=== PATIENT | male | born 1945 | race Caucasian/White ===

== ENCOUNTER 2018-02-03 09:07 | Inpatient (IN) | payer MEDICARE, OTHER ==
[~2018-02-03] VITALS: Ht 177.8 cm; Wt 128.8 kg
[2018-02-03 09:51] LABS: INTERNATIONAL NORMALIZED RATIO 1.16 (0.93-1.1)
[2018-02-03 09:53] LABS: ALBUMIN 3.3 g/dL (3.4-5.0); ANION GAP 10 mmol/L (5-15); CALCIUM 8.7 mg/dL (8.5-10.1); CHLORIDE 107 mmol/L (98-107); CREATININE 1.49 mg/dL (0.7-1.3)
[2018-02-03 10:12] LABS: MEAN CORPUSCULAR HEMOGLOBIN 35.4 pg (27.5-34.5); MEAN CORPUSCULAR HGB CONC 35.8 g/dL (33.2-36.2); MEAN PLATELET VOLUME 6.9 fL (7.4-10.4); RED BLOOD COUNT 3.03 x10^6/uL (4.38-5.82); RED CELL DISTRIBUTION WIDTH 19.5 % (9.4-14.8)
[2018-02-03 10:13] LABS: PLATELET COUNT 29 x10^3/uL (130-400)
[2018-02-03 10:18] LABS: MD YES
[2018-02-03] MEDS ORDERED: ATOR40TA78 PO (10:19)
[2018-02-03] MEDS ORDERED: FURO-93 PO (10:19)
[2018-02-03] MEDS ORDERED: GLYB2.5T2 PO (10:19)
[2018-02-03] MEDS ORDERED: AMLO5TAB7 PO (10:19)
[2018-02-03] MEDS ORDERED: METF500T17 PO (10:19)
[2018-02-03 10:23] LABS: LYMPH#(MANUAL) 0.14 x10^3/uL (1-3.4); LYMPHS% (MANUAL) 36 % (22-44); MONOS#(MANUAL) 0.02 x10^3/uL (0.3-2.7); MONOS% (MANUAL) 4 % (2-9); NRBC % (MANUAL) 4 % (0-1); SEG#(MANUAL) 0.24 x10^3/uL (1.8-6.8); SEGS% (MANUAL) 60 % (42-75)
[2018-02-03 10:24] LABS: <PLATELET ESTIMATE> DECREASED; <PLT MORPHOLOGY> NORMAL PLT MORPH; ANISOCYTOSIS 1+; POLYCHROMASIA 1+
[2018-02-03] MEDS ORDERED: CEFTRIAXONE 1,000 MG in SODIUM CHLORIDE 0.9% 50 ML IVPB ONE (11:30)
[2018-02-03] MEDS ORDERED: CEFTRIAXONE PMX 1GM/50ML 50 ML ONE (11:35)
[2018-02-03] MEDS ORDERED: ONDANSETRON ODT 4 MG PO PRN (12:00)
[2018-02-03] MEDS ORDERED: ONDANSETRON 2MG/ML, 2ML IVPush PRN (12:00)
[2018-02-03] MEDS ORDERED: DOCUSATE 100 MG CAPSULE PO PRN (12:00)
[2018-02-03] MEDS ORDERED: CEFTRIAXONE 1,000 MG in DEXTROSE 5% 50 ML IV SCH ×2 (12:00→23:00)
[2018-02-03] MEDS ORDERED: FUROSEMIDE 10 MG PO PRN (12:00)
[2018-02-03] MEDS ORDERED: hydrALAzine 20 MG/ML, 1ML IVPush PRN (12:00)
[2018-02-03] MEDS ORDERED: ZOLPIDEM 5MG TABLET PO PRN (12:00)
[2018-02-03] MEDS ORDERED: BISACODYL 10 MG SUPP PR PRN (12:00)
[2018-02-03] MEDS: SODIUM CHLORIDE 0.9% 1,000 ML IV SCH ×2 (12:06→21:53)
[2018-02-03 12:44] LABS: FOLATE LEVEL 13.8 ng/mL (3.1-17.5); FREE T4 (FREE THYROXINE) 1.22 ng/dL (0.76-1.46); THYROID STIMULATING HORMONE 0.573 mIU/L (0.358-3.740)
[2018-02-03 13:36] LABS: HEMOGLOBIN A1C 6.6 % (4.2-6.3)
[2018-02-03 14:00] VITALS: BP 142/70
[2018-02-03] MEDS: HYDROcodone/APAP 5/325 TABLET PO PRN (14:15)
[2018-02-03] MEDS: INSULIN LISPRO 100 UNITS/ML, PEN SQ-INSULIN SCH ×2 (16:00→21:54)
[2018-02-03 18:59] VITALS: BP 122/63
[2018-02-03] MEDS: ACETAMINOPHEN 325 MG TABLET PO PRN (19:31)
[2018-02-03] MEDS: ATORVASTATIN 10 MG TABLET PO SCH (19:53)
[2018-02-03] MEDS ORDERED: VANCOMYCIN PER PHARMACY MC PRN (23:00)
[2018-02-03] MEDS ORDERED: PHARMACY MAY ADJ FOR RENAL FX MC PRN (23:30)
[2018-02-03] MEDS ORDERED: PHARMACOKINETIC MONITORING MC PRN (23:45)
[2018-02-03] MEDS ORDERED: PHARMACOKINETIC CONSULTATION MC ONE (23:45)
[2018-02-04] VITALS (10 sets, daily range): BP systolic 99–137; BP diastolic 58–80
[2018-02-04 01:09] LABS: MICROSCOPIC NOT IND
[2018-02-04 01:11] LABS: CULTURE INDICATED? NO
[2018-02-04] MEDS ORDERED: VANCOMYCIN 2,200 MG in SODIUM CHLORIDE 0.9% 500 ML IV ONE (01:30)
[2018-02-04] MEDS: PIPERACILLIN/TAZO/PMX 3.375GM 50 ML IV SCH ×3 (02:13→17:41)
[2018-02-04 05:31] LABS: ANION GAP 12 mmol/L (5-15); CALCIUM 8.2 mg/dL (8.5-10.1); CHLORIDE 105 mmol/L (98-107)
[2018-02-04 05:32] LABS: CREATININE 1.54 mg/dL (0.7-1.3)
[2018-02-04 05:54] LABS: MEAN CORPUSCULAR HEMOGLOBIN 35.5 pg (27.5-34.5); MEAN CORPUSCULAR HGB CONC 35.9 g/dL (33.2-36.2); MEAN CORPUSCULAR VOLUME 99.1 fL (81-97); RED BLOOD COUNT 2.54 x10^6/uL (4.38-5.82); RED CELL DISTRIBUTION WIDTH 19.7 % (9.4-14.8)
[2018-02-04 06:17] LABS: MEAN PLATELET VOLUME 7.3 fL (7.4-10.4); PLATELET COUNT 18 x10^3/uL (130-400)
[2018-02-04 06:30] LABS: MD YES
[2018-02-04 06:35] LABS: LYMPHS% (MANUAL) 24 % (22-44); MONOS#(MANUAL) 0.02 x10^3/uL (0.3-2.7); MONOS% (MANUAL) 4 % (2-9); SEG#(MANUAL) 0.29 x10^3/uL (1.8-6.8); SEGS% (MANUAL) 72 % (42-75)
[2018-02-04 06:37] LABS: <PLATELET ESTIMATE> DECREASED; <PLT MORPHOLOGY> NORMAL PLT MORPH; ANISOCYTOSIS 1+; POLYCHROMASIA 1+
[2018-02-04 06:58] LABS: ALBUMIN 2.8 g/dL (3.4-5.0); BILIRUBIN, DIRECT 0.4 mg/dL (0.1-0.2)
[2018-02-04 07:00] LABS: BILIRUBIN,INDIRECT 0.6 mg/dL (0.0-2.0); TOTAL PROTEIN 6.6 g/dL (6.4-8.2)
[2018-02-04] MEDS: SODIUM CHLORIDE 0.9% 1,000 ML IV SCH (08:00)
[2018-02-04] MEDS: INSULIN LISPRO 100 UNITS/ML, PEN SQ-INSULIN SCH ×4 (09:19→21:18)
[2018-02-04] MEDS: AMLODIPINE 10 MG TAB PO SCH (09:19)
[2018-02-04] MEDS: PANTOPROZOLE 40MG TABLET PO SCH (09:19)
[2018-02-04 13:25] LABS: ANA SCREEN POSITIVE (Negative); ANTI-NUCLEAR ANTIBODY PATTERN HOMOGENOUS
[2018-02-04] MEDS ORDERED: NALOXONE 1 MG/ML, 2ML ONE (13:30)
[2018-02-04] MEDS ORDERED: FLUMAZENIL 0.1 MG/1 ML, 5ML ONE (13:30)
[2018-02-04] MEDS ORDERED: MIDAZOLAM 1 MG/ML, 5ML ONE (13:30)
[2018-02-04] MEDS ORDERED: FENTANYL PF 100 MCG/2ML ONE (13:30)
[2018-02-04] MEDS ORDERED: LIDOCAINE-MPF 2%, 2ML ONE (14:03)
[2018-02-04] MEDS ORDERED: ACETAMINOPHEN 325 MG TABLET PO ONE (20:00)
[2018-02-04] MEDS ORDERED: DIPHENHYDRAMINE 50 MG/ML, 1ML IVPush ONE (20:00)
[2018-02-04] MEDS: ATORVASTATIN 10 MG TABLET PO SCH (21:18)
[2018-02-05] VITALS (13 sets, daily range): BP systolic 88–148; BP diastolic 52–82
[2018-02-05] MEDS: PIPERACILLIN/TAZO/PMX 3.375GM 50 ML IV SCH ×4 (00:58→20:24)
[2018-02-05] MEDS: VANCOMYCIN 2,000 MG in SODIUM CHLORIDE 0.9% 500 ML IV SCH (03:36)
[2018-02-05] MEDS: SODIUM CHLORIDE 0.9% 1,000 ML IV SCH ×2 (03:37→20:24)
[2018-02-05 06:23] LABS: HCT (SEDRATE) 23.3 % (39.2-51.8)
[2018-02-05 06:36] LABS: ANION GAP 9 mmol/L (5-15); CALCIUM 8.3 mg/dL (8.5-10.1); CHLORIDE 106 mmol/L (98-107); CREATININE 1.41 mg/dL (0.7-1.3)
[2018-02-05 06:57] LABS: MD YES; MEAN CORPUSCULAR HEMOGLOBIN 35.4 pg (27.5-34.5); MEAN CORPUSCULAR HGB CONC 35.8 g/dL (33.2-36.2); MEAN PLATELET VOLUME 7.6 fL (7.4-10.4); RED BLOOD COUNT 2.32 x10^6/uL (4.38-5.82); RED CELL DISTRIBUTION WIDTH 19.3 % (9.4-14.8)
[2018-02-05 07:00] LABS: PLATELET COUNT 26 x10^3/uL (130-400)
[2018-02-05 07:04] LABS: <PLATELET ESTIMATE> DECREASED; <PLT MORPHOLOGY> NORMAL PLT MORPH; ANISOCYTOSIS 1+; LYMPH#(MANUAL) 0.34 x10^3/uL (1-3.4); LYMPHS% (MANUAL) 68 % (22-44); POLYCHROMASIA 1+; SEG#(MANUAL) 0.16 x10^3/uL (1.8-6.8); SEGS% (MANUAL) 32 % (42-75)
[2018-02-05] MEDS: PANTOPROZOLE 40MG TABLET PO SCH (09:26)
[2018-02-05] MEDS: INSULIN LISPRO 100 UNITS/ML, PEN SQ-INSULIN SCH ×4 (09:26→20:24)
[2018-02-05] MEDS: AMLODIPINE 10 MG TAB PO SCH (09:26)
[2018-02-05] MEDS: ACETAMINOPHEN 325 MG TABLET PO PRN ×2 (14:54→21:49)
[2018-02-05] MEDS ORDERED: SODIUM CHLORIDE NASAL SPRAY 45ML BOTTLE NAS PRN (16:00)
[2018-02-05] MEDS: ATORVASTATIN 10 MG TABLET PO SCH (20:24)
[2018-02-06] VITALS (8 sets, daily range): BP systolic 114–139; BP diastolic 65–76
[2018-02-06] MEDS: PIPERACILLIN/TAZO/PMX 3.375GM 50 ML IV SCH ×4 (02:21→20:24)
[2018-02-06] MEDS: VANCOMYCIN 2,000 MG in SODIUM CHLORIDE 0.9% 500 ML IV SCH (02:54)
[2018-02-06 06:11] LABS: ANION GAP 10 mmol/L (5-15); CALCIUM 8.2 mg/dL (8.5-10.1); CHLORIDE 108 mmol/L (98-107); CREATININE 1.15 mg/dL (0.7-1.3)
[2018-02-06 06:22] LABS: MEAN CORPUSCULAR HEMOGLOBIN 34.5 pg (27.5-34.5); MEAN CORPUSCULAR HGB CONC 34.6 g/dL (33.2-36.2); MEAN CORPUSCULAR VOLUME 99.7 fL (81-97); RED BLOOD COUNT 2.15 x10^6/uL (4.38-5.82); RED CELL DISTRIBUTION WIDTH 20.6 % (9.4-14.8)
[2018-02-06 06:55] LABS: MD YES; MEAN PLATELET VOLUME 7.2 fL (7.4-10.4)
[2018-02-06 07:01] LABS: NRBC % (MANUAL) 8 % (0-1); OTHER CELLS # (MANUAL) 0.02 x10^3/uL (0-0); OTHER CELLS % (MANUAL) 4 % (0-0)
[2018-02-06 07:02] LABS: ANISOCYTOSIS 1+; LYMPH#(MANUAL) 0.24 x10^3/uL (1-3.4); LYMPHS% (MANUAL) 60 % (22-44); MONOS#(MANUAL) 0.02 x10^3/uL (0.3-2.7); MONOS% (MANUAL) 4 % (2-9); SEG#(MANUAL) 0.13 x10^3/uL (1.8-6.8); SEGS% (MANUAL) 32 % (42-75)
[2018-02-06 07:04] LABS: <PLATELET ESTIMATE> DECREASED; <PLT MORPHOLOGY> NORMAL PLT MORPH; OVALOCYTES 1+
[2018-02-06 07:07] LABS: PLATELET COUNT 18 x10^3/uL (130-400)
[2018-02-06] MEDS: AMLODIPINE 10 MG TAB PO SCH (08:35)
[2018-02-06] MEDS: PANTOPROZOLE 40MG TABLET PO SCH (08:35)
[2018-02-06] MEDS: INSULIN LISPRO 100 UNITS/ML, PEN SQ-INSULIN SCH ×4 (08:35→20:25)
[2018-02-06] MEDS: CARVEDILOL 3.125 MG TABLET PO SCH (17:04)
[2018-02-06] MEDS: ATORVASTATIN 10 MG TABLET PO SCH (20:25)
[2018-02-07] MEDS: SODIUM CHLORIDE 0.9% 1,000 ML IV SCH ×2 (00:51→00:52)
[2018-02-07 00:55] VITALS: BP 116/73
[2018-02-07] MEDS: PIPERACILLIN/TAZO/PMX 3.375GM 50 ML IV SCH ×4 (02:32→23:06)
[2018-02-07] MEDS: VANCOMYCIN 2,000 MG in SODIUM CHLORIDE 0.9% 500 ML IV SCH (03:19)
[2018-02-07 05:54] VITALS: BP 120/67
[2018-02-07] MEDS: CARVEDILOL 3.125 MG TABLET PO SCH ×2 (05:56→18:42)
[2018-02-07 05:59] LABS: ANION GAP 9 mmol/L (5-15); CALCIUM 8.4 mg/dL (8.5-10.1); CHLORIDE 106 mmol/L (98-107)
[2018-02-07 06:01] LABS: CREATININE 1.04 mg/dL (0.7-1.3)
[2018-02-07 06:06] LABS: MEAN CORPUSCULAR HEMOGLOBIN 35.4 pg (27.5-34.5); MEAN CORPUSCULAR HGB CONC 35.8 g/dL (33.2-36.2); MEAN CORPUSCULAR VOLUME 98.9 fL (81-97); MEAN PLATELET VOLUME 7.1 fL (7.4-10.4); RED BLOOD COUNT 2.01 x10^6/uL (4.38-5.82); RED CELL DISTRIBUTION WIDTH 19.5 % (9.4-14.8)
[2018-02-07 06:08] LABS: PLATELET COUNT 21 x10^3/uL (130-400)
[2018-02-07 06:28] LABS: MD YES
[2018-02-07 08:10] VITALS: BP 110/65
[2018-02-07 08:32] LABS: MONOS#(MANUAL) 0.06 x10^3/uL (0.3-2.7); MONOS% (MANUAL) 14 % (2-9)
[2018-02-07 08:33] LABS: LYMPH#(MANUAL) 0.18 x10^3/uL (1-3.4); LYMPHS% (MANUAL) 46 % (22-44); SEG#(MANUAL) 0.16 x10^3/uL (1.8-6.8); SEGS% (MANUAL) 40 % (42-75)
[2018-02-07 08:34] LABS: <PLATELET ESTIMATE> DECREASED; <PLT MORPHOLOGY> NORMAL PLT MORPH; ANISOCYTOSIS 1+
[2018-02-07] MEDS: AMLODIPINE 10 MG TAB PO SCH (08:36)
[2018-02-07] MEDS: INSULIN LISPRO 100 UNITS/ML, PEN SQ-INSULIN SCH ×4 (08:36→20:20)
[2018-02-07] MEDS: PANTOPROZOLE 40MG TABLET PO SCH (08:36)
[2018-02-07] MEDS: ACETAMINOPHEN 325 MG TABLET PO PRN (11:40)
[2018-02-07 14:10] VITALS: BP 118/70
[2018-02-07] MEDS ORDERED: VANCOMYCIN 2,200 MG in SODIUM CHLORIDE 0.9% 500 ML IV SCH (20:00)
[2018-02-07] MEDS: ATORVASTATIN 10 MG TABLET PO SCH (20:20)
[2018-02-07 20:23] VITALS: BP 117/67
[2018-02-08] VITALS (11 sets, daily range): BP systolic 106–145; BP diastolic 64–76
[2018-02-08] MEDS: HYDROcodone/APAP 5/325 TABLET PO PRN (02:55)
[2018-02-08 05:08] LABS: MEAN CORPUSCULAR HEMOGLOBIN 35.1 pg (27.5-34.5); MEAN CORPUSCULAR HGB CONC 35.9 g/dL (33.2-36.2); MEAN CORPUSCULAR VOLUME 97.8 fL (81-97); MEAN PLATELET VOLUME 7.1 fL (7.4-10.4); RED BLOOD COUNT 1.86 x10^6/uL (4.38-5.82); RED CELL DISTRIBUTION WIDTH 19.8 % (9.4-14.8)
[2018-02-08 05:12] LABS: PLATELET COUNT 16 x10^3/uL (130-400)
[2018-02-08] MEDS: CARVEDILOL 3.125 MG TABLET PO SCH ×2 (05:12→17:03)
[2018-02-08] MEDS: PIPERACILLIN/TAZO/PMX 3.375GM 50 ML IV SCH ×3 (05:12→21:56)
[2018-02-08 05:13] LABS: ANION GAP 8 mmol/L (5-15); CALCIUM 8.1 mg/dL (8.5-10.1); CHLORIDE 106 mmol/L (98-107); CREATININE 1.03 mg/dL (0.7-1.3)
[2018-02-08 05:48] LABS: MD YES
[2018-02-08 05:54] LABS: LYMPH#(MANUAL) 0.21 x10^3/uL (1-3.4); LYMPHS% (MANUAL) 52 % (22-44); MONOS#(MANUAL) 0.06 x10^3/uL (0.3-2.7); MONOS% (MANUAL) 16 % (2-9); SEG#(MANUAL) 0.13 x10^3/uL (1.8-6.8); SEGS% (MANUAL) 32 % (42-75)
[2018-02-08 05:55] LABS: ANISOCYTOSIS 1+
[2018-02-08 05:56] LABS: <PLATELET ESTIMATE> DECREASED; <PLT MORPHOLOGY> NORMAL PLT MORPH
[2018-02-08] MEDS: PANTOPROZOLE 40MG TABLET PO SCH (07:30)
[2018-02-08] MEDS: INSULIN LISPRO 100 UNITS/ML, PEN SQ-INSULIN SCH ×4 (08:29→21:18)
[2018-02-08] MEDS: AMLODIPINE 10 MG TAB PO SCH (08:29)
[2018-02-08] MEDS ORDERED: VANCOMYCIN 2,200 MG in SODIUM CHLORIDE 0.9% 500 ML IV SCH (15:30)
[2018-02-08] MEDS: ATORVASTATIN 10 MG TABLET PO SCH (21:18)
[2018-02-09] VITALS (7 sets, daily range): BP systolic 123–160; BP diastolic 62–76
[2018-02-09] MEDS: PIPERACILLIN/TAZO/PMX 3.375GM 50 ML IV SCH (04:07)
[2018-02-09] MEDS: CARVEDILOL 3.125 MG TABLET PO SCH ×2 (05:26→16:32)
[2018-02-09] MEDS: INSULIN LISPRO 100 UNITS/ML, PEN SQ-INSULIN SCH ×4 (07:00→20:17)
[2018-02-09] MEDS: PANTOPROZOLE 40MG TABLET PO SCH (07:30)
[2018-02-09 07:35] LABS: ALBUMIN 2.6 g/dL (3.4-5.0); ANION GAP 9 mmol/L (5-15); CALCIUM 8.3 mg/dL (8.5-10.1); CHLORIDE 107 mmol/L (98-107)
[2018-02-09 07:38] LABS: ALANINE AMINOTRANSFERASE 60 U/L (12-78); ALKALINE PHOSPHATASE 74 U/L (45-117); BILIRUBIN,TOTAL 1.1 mg/dL (0.2-1.0); CREATININE 1.06 mg/dL (0.7-1.3); TOTAL PROTEIN 6.3 g/dL (6.4-8.2)
[2018-02-09 07:45] LABS: MEAN CORPUSCULAR HEMOGLOBIN 33.9 pg (27.5-34.5); MEAN CORPUSCULAR HGB CONC 35.2 g/dL (33.2-36.2); MEAN CORPUSCULAR VOLUME 96.1 fL (81-97); RED BLOOD COUNT 2.43 x10^6/uL (4.38-5.82); RED CELL DISTRIBUTION WIDTH 18.9 % (9.4-14.8)
[2018-02-09 08:04] LABS: HEMOGRAM NOTE RECHECKED; MD YES; MEAN PLATELET VOLUME 7.6 fL (7.4-10.4); PLATELET COUNT 10 x10^3/uL (130-400)
[2018-02-09 08:05] LABS: LYMPH#(MANUAL) 0.19 x10^3/uL (1-3.4); LYMPHS% (MANUAL) 48 % (22-44); MONOS#(MANUAL) 0.06 x10^3/uL (0.3-2.7); MONOS% (MANUAL) 16 % (2-9); SEG#(MANUAL) 0.14 x10^3/uL (1.8-6.8); SEGS% (MANUAL) 36 % (42-75)
[2018-02-09 08:06] LABS: <PLATELET ESTIMATE> DECREASED; <PLT MORPHOLOGY> QNS FOR PLT MORPH; ANISOCYTOSIS 1+
[2018-02-09] MEDS: AMLODIPINE 10 MG TAB PO SCH (08:23)
[2018-02-09] MEDS ORDERED: ONDANSETRON IV ONE (16:00)
[2018-02-09] MEDS ORDERED: DEXTROSE 5% IV ONE (16:00)
[2018-02-09] MEDS ORDERED: DEXAMETHASONE IV ONE (16:00)
[2018-02-09] MEDS ORDERED: AZACITIDINE IV SCH (16:30)
[2018-02-09] MEDS ORDERED: FAMOTIDINE 20 MG/2 ML IVPush SCH (16:30)
[2018-02-09] MEDS ORDERED: SODIUM CHLORIDE 0.9% IV SCH (16:30)
[2018-02-09] MEDS ORDERED: DIPHENHYDRAMINE 50 MG/ML, 1ML IVPush SCH (16:30)
[2018-02-09] MEDS ORDERED: ACETAMINOPHEN 325 MG TABLET PO ONE (16:30)
[2018-02-09] MEDS: FAMOTIDINE 20 MG/2 ML IVPush SCH (16:44)
[2018-02-09] MEDS: DIPHENHYDRAMINE 50 MG/ML, 1ML IVPush SCH (16:44)
[2018-02-09] MEDS: SODIUM CHLORIDE 0.9% IV SCH (18:19)
[2018-02-09] MEDS: AZACITIDINE IV SCH (18:19)
[2018-02-09] MEDS: ATORVASTATIN 10 MG TABLET PO SCH (20:17)
[2018-02-10 02:36] VITALS: BP 134/71
[2018-02-10 04:42] LABS: MEAN CORPUSCULAR HEMOGLOBIN 34.3 pg (27.5-34.5); MEAN CORPUSCULAR HGB CONC 35.3 g/dL (33.2-36.2); MEAN CORPUSCULAR VOLUME 97.1 fL (81-97); MEAN PLATELET VOLUME 7.8 fL (7.4-10.4); RED BLOOD COUNT 2.37 x10^6/uL (4.38-5.82); RED CELL DISTRIBUTION WIDTH 18.4 % (9.4-14.8)
[2018-02-10 04:46] LABS: ALBUMIN 2.7 g/dL (3.4-5.0); ANION GAP 7 mmol/L (5-15); CALCIUM 8.3 mg/dL (8.5-10.1); CHLORIDE 107 mmol/L (98-107)
[2018-02-10 04:50] LABS: ALANINE AMINOTRANSFERASE 62 U/L (12-78); ALKALINE PHOSPHATASE 81 U/L (45-117); BILIRUBIN,TOTAL 0.6 mg/dL (0.2-1.0); CREATININE 1.02 mg/dL (0.7-1.3); TOTAL PROTEIN 6.4 g/dL (6.4-8.2)
[2018-02-10 04:52] LABS: PLATELET COUNT 30 x10^3/uL (130-400)
[2018-02-10 05:44] LABS: MD YES
[2018-02-10 06:01] LABS: LYMPH#(MANUAL) 0.13 x10^3/uL (1-3.4); LYMPHS% (MANUAL) 64 % (22-44); MONOS#(MANUAL) 0.05 x10^3/uL (0.3-2.7); MONOS% (MANUAL) 24 % (2-9); SEG#(MANUAL) 0.02 x10^3/uL (1.8-6.8); SEGS% (MANUAL) 12 % (42-75)
[2018-02-10 06:02] LABS: <PLATELET ESTIMATE> DECREASED; <PLT MORPHOLOGY> NORMAL PLT MORPH; ANISOCYTOSIS 1+
[2018-02-10] MEDS: CARVEDILOL 3.125 MG TABLET PO SCH ×2 (06:18→18:30)
[2018-02-10 07:09] VITALS: BP 129/71
[2018-02-10] MEDS: AMLODIPINE 10 MG TAB PO SCH (08:19)
[2018-02-10] MEDS: PANTOPROZOLE 40MG TABLET PO SCH (08:19)
[2018-02-10] MEDS: INSULIN LISPRO 100 UNITS/ML, PEN SQ-INSULIN SCH ×4 (08:39→20:59)
[2018-02-10 12:15] VITALS: BP 116/71
[2018-02-10] MEDS: ACETAMINOPHEN 325 MG TABLET PO PRN (17:21)
[2018-02-10] MEDS: FAMOTIDINE 20 MG/2 ML IVPush SCH (17:21)
[2018-02-10] MEDS: ONDANSETRON 2MG/ML, 2ML IVPush SCH (17:21)
[2018-02-10] MEDS: DIPHENHYDRAMINE 50 MG/ML, 1ML IVPush SCH (17:36)
[2018-02-10] MEDS: AZACITIDINE IV SCH (18:28)
[2018-02-10] MEDS: SODIUM CHLORIDE 0.9% IV SCH (18:28)
[2018-02-10 19:55] VITALS: BP 122/78
[2018-02-10] MEDS: ATORVASTATIN 10 MG TABLET PO SCH (20:59)
[2018-02-11] VITALS (8 sets, daily range): BP systolic 105–131; BP diastolic 60–75
[2018-02-11] MEDS: CARVEDILOL 3.125 MG TABLET PO SCH ×2 (05:21→18:16)
[2018-02-11 05:24] LABS: ALANINE AMINOTRANSFERASE 53 U/L (12-78); ALBUMIN 2.6 g/dL (3.4-5.0); ANION GAP 9 mmol/L (5-15); CALCIUM 8.2 mg/dL (8.5-10.1); CHLORIDE 106 mmol/L (98-107); CREATININE 1.18 mg/dL (0.7-1.3)
[2018-02-11 05:33] LABS: ALKALINE PHOSPHATASE 73 U/L (45-117); BILIRUBIN,TOTAL 0.7 mg/dL (0.2-1.0); TOTAL PROTEIN 6.1 g/dL (6.4-8.2)
[2018-02-11 05:40] LABS: MEAN CORPUSCULAR HEMOGLOBIN 33.7 pg (27.5-34.5); MEAN CORPUSCULAR VOLUME 96.3 fL (81-97); MEAN PLATELET VOLUME 7.5 fL (7.4-10.4); RED CELL DISTRIBUTION WIDTH 17.7 % (9.4-14.8)
[2018-02-11 05:42] LABS: PLATELET COUNT 21 x10^3/uL (130-400)
[2018-02-11 06:06] LABS: MD YES
[2018-02-11 06:11] LABS: LYMPH#(MANUAL) 0.25 x10^3/uL (1-3.4); LYMPHS% (MANUAL) 84 % (22-44); MONOS#(MANUAL) 0.01 x10^3/uL (0.3-2.7); MONOS% (MANUAL) 4 % (2-9); SEG#(MANUAL) 0.04 x10^3/uL (1.8-6.8); SEGS% (MANUAL) 12 % (42-75)
[2018-02-11 06:12] LABS: <PLATELET ESTIMATE> DECREASED; <PLT MORPHOLOGY> NORMAL PLT MORPH; ANISOCYTOSIS 1+
[2018-02-11] MEDS: POLYETHYLENE GLYCOL 17 GM PACKET PO SCH (08:05)
[2018-02-11] MEDS: PANTOPROZOLE 40MG TABLET PO SCH (08:06)
[2018-02-11] MEDS: INSULIN LISPRO 100 UNITS/ML, PEN SQ-INSULIN SCH ×4 (08:06→21:17)
[2018-02-11] MEDS: AMLODIPINE 10 MG TAB PO SCH (08:06)
[2018-02-11] MEDS: ACETAMINOPHEN 325 MG TABLET PO PRN ×2 (12:07→16:46)
[2018-02-11] MEDS ORDERED: PHARMACOKINETIC CONSULTATION MC ONE (13:00)
[2018-02-11] MEDS ORDERED: PHARMACOKINETIC MONITORING MC PRN (13:00)
[2018-02-11] MEDS ORDERED: VANCOMYCIN PER PHARMACY MC PRN (13:00)
[2018-02-11] MEDS: VANCOMYCIN 2,200 MG in SODIUM CHLORIDE 0.9% 500 ML IV SCH (13:57)
[2018-02-11] MEDS: CEFEPIME 2 GM in DEXTROSE 5% 100 ML IV SCH (16:30)
[2018-02-11] MEDS: ONDANSETRON 2MG/ML, 2ML IVPush SCH (16:30)
[2018-02-11] MEDS ORDERED: SODIUM CHLORIDE 0.9%, 500ML IVBOLUS ONE (16:45)
[2018-02-11 16:59] LABS: MICROSCOPIC NOT IND
[2018-02-11] MEDS: DIPHENHYDRAMINE 50 MG/ML, 1ML IVPush SCH (17:00)
[2018-02-11] MEDS: FAMOTIDINE 20 MG/2 ML IVPush SCH (17:00)
[2018-02-11 17:03] LABS: CULTURE INDICATED? NO
[2018-02-11] MEDS: HYDROcodone/APAP 5/325 TABLET PO PRN ×2 (17:20→21:02)
[2018-02-11] MEDS: SODIUM CHLORIDE 0.9% IV SCH (17:30)
[2018-02-11] MEDS: AZACITIDINE IV SCH (17:30)
[2018-02-11 17:31] LABS: ALANINE AMINOTRANSFERASE 54 U/L (12-78); ALBUMIN 2.7 g/dL (3.4-5.0); ANION GAP 7 mmol/L (5-15); CALCIUM 8.1 mg/dL (8.5-10.1); CHLORIDE 103 mmol/L (98-107); CREATINE KINASE, TOTAL 72 U/L (39-308); TROPONIN I 0.041 ng/mL (0.000-0.045)
[2018-02-11 17:34] LABS: ALKALINE PHOSPHATASE 75 U/L (45-117); TOTAL PROTEIN 6.4 g/dL (6.4-8.2)
[2018-02-11 17:45] LABS: MEAN CORPUSCULAR HEMOGLOBIN 34.5 pg (27.5-34.5); MEAN CORPUSCULAR HGB CONC 35.6 g/dL (33.2-36.2); MEAN CORPUSCULAR VOLUME 97.1 fL (81-97); MEAN PLATELET VOLUME 8.3 fL (7.4-10.4); RED BLOOD COUNT 2.17 x10^6/uL (4.38-5.82); RED CELL DISTRIBUTION WIDTH 17.5 % (9.4-14.8)
[2018-02-11 17:48] LABS: PLATELET COUNT 13 x10^3/uL (130-400)
[2018-02-11 17:49] LABS: MD YES
[2018-02-11 18:07] LABS: ANISOCYTOSIS 1+; EOS#(MANUAL) 0.02 x10^3/uL (0.0-0.4); EOS% (MANUAL) 4 % (1-7); LYMPH#(MANUAL) 0.24 x10^3/uL (1-3.4); LYMPHS% (MANUAL) 60 % (22-44); MONOS#(MANUAL) 0.13 x10^3/uL (0.3-2.7); MONOS% (MANUAL) 32 % (2-9); NRBC % (MANUAL) 1 % (0-1); SEG#(MANUAL) 0.02 x10^3/uL (1.8-6.8); SEGS% (MANUAL) 4 % (42-75)
[2018-02-11 18:08] LABS: OVALOCYTES 1+
[2018-02-11 18:09] LABS: <PLATELET ESTIMATE> DECREASED; <PLT MORPHOLOGY> NORMAL PLT MORPH; POLYCHROMASIA 1+
[2018-02-11] MEDS ORDERED: SODIUM CHLORIDE 0.9% 500 ML IV SCH (19:00)
[2018-02-11] MEDS: ATORVASTATIN 10 MG TABLET PO SCH (21:00)
[2018-02-11] MEDS: SODIUM CHLORIDE 0.9% 1,000 ML IV SCH (21:18)
[2018-02-12] MEDS: CEFEPIME 2 GM in DEXTROSE 5% 100 ML IV SCH ×3 (01:13→20:25)
[2018-02-12] MEDS: SODIUM CHLORIDE 0.9% 1,000 ML IV SCH ×3 (05:17→20:25)
[2018-02-12] MEDS: CARVEDILOL 3.125 MG TABLET PO SCH ×2 (06:00→17:06)
[2018-02-12] MEDS: POLYETHYLENE GLYCOL 17 GM PACKET PO SCH (09:00)
[2018-02-12] MEDS: AMLODIPINE 10 MG TAB PO SCH (09:00)
[2018-02-12] MEDS: INSULIN LISPRO 100 UNITS/ML, PEN SQ-INSULIN SCH ×4 (10:03→20:30)
[2018-02-12] MEDS: MICAFUNGIN 100 MG in SODIUM CHLORIDE 0.9% 100 ML IV SCH (10:59)
[2018-02-12 11:45] VITALS: BP 104/66
[2018-02-12] MEDS: VANCOMYCIN 2,200 MG in SODIUM CHLORIDE 0.9% 500 ML IV SCH (16:05)
[2018-02-12] MEDS: ONDANSETRON 2MG/ML, 2ML IVPush SCH (16:30)
[2018-02-12] MEDS: SODIUM CHLORIDE 0.9% IV SCH (16:55)
[2018-02-12] MEDS: AZACITIDINE IV SCH (16:55)
[2018-02-12] MEDS: DIPHENHYDRAMINE 50 MG/ML, 1ML IVPush SCH (16:56)
[2018-02-12] MEDS: FAMOTIDINE 20 MG/2 ML IVPush SCH (16:56)
[2018-02-12 19:31] VITALS: BP 117/70
[2018-02-12] MEDS: ATORVASTATIN 10 MG TABLET PO SCH (20:26)
[2018-02-13] VITALS (7 sets, daily range): BP systolic 103–118; BP diastolic 67–74
[2018-02-13] MEDS: SODIUM CHLORIDE 0.9% 1,000 ML IV SCH ×3 (03:20→21:00)
[2018-02-13] MEDS: CEFEPIME 2 GM in DEXTROSE 5% 100 ML IV SCH ×3 (03:21→21:20)
[2018-02-13] MEDS: CARVEDILOL 3.125 MG TABLET PO SCH ×2 (05:31→18:44)
[2018-02-13 06:35] LABS: MEAN CORPUSCULAR HEMOGLOBIN 33.8 pg (27.5-34.5); MEAN CORPUSCULAR VOLUME 96.6 fL (81-97); MEAN PLATELET VOLUME 8.3 fL (7.4-10.4); RED BLOOD COUNT 2.07 x10^6/uL (4.38-5.82); RED CELL DISTRIBUTION WIDTH 18.1 % (9.4-14.8)
[2018-02-13 06:39] LABS: PLATELET COUNT 6 x10^3/uL (130-400)
[2018-02-13 07:00] LABS: MD YES
[2018-02-13 07:03] LABS: ANISOCYTOSIS 1+; EOS#(MANUAL) 0.02 x10^3/uL (0.0-0.4); EOS% (MANUAL) 4 % (1-7); LYMPH#(MANUAL) 0.42 x10^3/uL (1-3.4); LYMPHS% (MANUAL) 70 % (22-44); MONOS#(MANUAL) 0.16 x10^3/uL (0.3-2.7); MONOS% (MANUAL) 26 % (2-9); SEGS% (MANUAL) 0 % (42-75)
[2018-02-13 07:04] LABS: <PLATELET ESTIMATE> DECREASED; <PLT MORPHOLOGY> QNS FOR PLT MORPH
[2018-02-13] MEDS: INSULIN LISPRO 100 UNITS/ML, PEN SQ-INSULIN SCH ×4 (08:12→21:28)
[2018-02-13] MEDS: AMLODIPINE 10 MG TAB PO SCH (10:22)
[2018-02-13] MEDS: POLYETHYLENE GLYCOL 17 GM PACKET PO SCH (10:22)
[2018-02-13] MEDS: MICAFUNGIN 100 MG in SODIUM CHLORIDE 0.9% 100 ML IV SCH (10:46)
[2018-02-13] MEDS: ONDANSETRON 2MG/ML, 2ML IVPush SCH (16:34)
[2018-02-13] MEDS: FAMOTIDINE 20 MG/2 ML IVPush SCH (17:00)
[2018-02-13] MEDS: DIPHENHYDRAMINE 50 MG/ML, 1ML IVPush SCH (17:01)
[2018-02-13] MEDS: AZACITIDINE IV SCH (17:01)
[2018-02-13] MEDS: SODIUM CHLORIDE 0.9% IV SCH (17:01)
[2018-02-13] MEDS: ACETAMINOPHEN 325 MG TABLET PO PRN (19:01)
[2018-02-13] MEDS: ATORVASTATIN 10 MG TABLET PO SCH (21:17)
[2018-02-14] VITALS (13 sets, daily range): BP systolic 108–147; BP diastolic 67–80
[2018-02-14] MEDS: CEFEPIME 2 GM in DEXTROSE 5% 100 ML IV SCH ×3 (04:08→21:37)
[2018-02-14] MEDS: SODIUM CHLORIDE 0.9% 1,000 ML IV SCH ×2 (05:00→13:00)
[2018-02-14] MEDS: CARVEDILOL 3.125 MG TABLET PO SCH ×2 (05:43→17:50)
[2018-02-14] MEDS: INSULIN LISPRO 100 UNITS/ML, PEN SQ-INSULIN SCH ×4 (08:17→21:51)
[2018-02-14] MEDS: POLYETHYLENE GLYCOL 17 GM PACKET PO SCH (09:00)
[2018-02-14] MEDS: AMLODIPINE 10 MG TAB PO SCH (09:00)
[2018-02-14 11:40] LABS: MEAN CORPUSCULAR HEMOGLOBIN 34.2 pg (27.5-34.5); MEAN CORPUSCULAR HGB CONC 35.7 g/dL (33.2-36.2); MEAN CORPUSCULAR VOLUME 95.8 fL (81-97); MEAN PLATELET VOLUME 7.2 fL (7.4-10.4); RED BLOOD COUNT 1.76 x10^6/uL (4.38-5.82); RED CELL DISTRIBUTION WIDTH 17.4 % (9.4-14.8)
[2018-02-14 11:41] LABS: MD YES
[2018-02-14 11:51] LABS: PLATELET COUNT 6 x10^3/uL (130-400)
[2018-02-14 11:57] LABS: ANION GAP 6 mmol/L (5-15); CALCIUM 7.7 mg/dL (8.5-10.1); CHLORIDE 101 mmol/L (98-107); CREATININE 1.08 mg/dL (0.7-1.3)
[2018-02-14] MEDS: maalox/diphenh/lido/sucralfate 5 ML PO PRN ×2 (12:30→17:50)
[2018-02-14] MEDS: HYDROcodone/APAP 5/325 TABLET PO PRN (13:28)
[2018-02-14] MEDS ORDERED: FUROSEMIDE 40 MG/4 ML ONE (16:21)
[2018-02-14] MEDS ORDERED: FUROSEMIDE 40 MG/4 ML IV ONE (16:30)
[2018-02-14 17:14] LABS: BAND#(MANUAL) 0.01 x10^3/uL; BANDS%(MANUAL) 1 % (0-7); BASOS#(MANUAL) 0.01 x10^3/uL (0-0.1); BASOS% (MANUAL) 1 % (0-1); EOS#(MANUAL) 0.01 x10^3/uL (0.0-0.4); EOS% (MANUAL) 1 % (1-7); LYMPHS% (MANUAL) 19 % (22-44); MONOS#(MANUAL) 0.07 x10^3/uL (0.3-2.7); MONOS% (MANUAL) 14 % (2-9); SEG#(MANUAL) 0.01 x10^3/uL (1.8-6.8); SEGS% (MANUAL) 2 % (42-75)
[2018-02-14 17:18] LABS: ANISOCYTOSIS 1+
[2018-02-14 17:20] LABS: POLYCHROMASIA 1+
[2018-02-14 17:21] LABS: <PLATELET ESTIMATE> DECREASED; OVALOCYTES 1+
[2018-02-14 17:22] LABS: <PLT MORPHOLOGY> QNS FOR PLT MORPH
[2018-02-14 17:23] LABS: OTHER CELLS # (MANUAL) 0.31 x10^3/uL (0-0); OTHER CELLS % (MANUAL) 62 % (0-0)
[2018-02-14] MEDS ORDERED: FAMOTIDINE 20 MG TABLET ONE (19:46)
[2018-02-14] MEDS ORDERED: DIPHENHYDRAMINE 25 MG CAPSULE ONE (19:46)
[2018-02-14] MEDS ORDERED: ONDANSETRON ODT 8 MG ONE (19:47)
[2018-02-14] MEDS: FAMOTIDINE 20 MG/2 ML IVPush SCH (20:08)
[2018-02-14] MEDS: ONDANSETRON 2MG/ML, 2ML IVPush SCH (20:09)
[2018-02-14] MEDS: DIPHENHYDRAMINE 50 MG/ML, 1ML IVPush SCH (20:09)
[2018-02-14] MEDS: SODIUM CHLORIDE 0.9% IV SCH (20:39)
[2018-02-14] MEDS: AZACITIDINE IV SCH (20:39)
[2018-02-14] MEDS ORDERED: INSULIN LISPRO 100 UNITS/ML, PEN SQ-INSULIN SCH (21:00)
[2018-02-14] MEDS: ATORVASTATIN 10 MG TABLET PO SCH (21:37)
[2018-02-15] VITALS (13 sets, daily range): BP systolic 103–123; BP diastolic 28–83
[2018-02-15] MEDS: CEFEPIME 2 GM in DEXTROSE 5% 100 ML IV SCH ×3 (04:04→22:37)
[2018-02-15] MEDS: CARVEDILOL 3.125 MG TABLET PO SCH ×2 (06:07→18:10)
[2018-02-15 06:11] LABS: MEAN CORPUSCULAR HEMOGLOBIN 33.4 pg (27.5-34.5); MEAN CORPUSCULAR HGB CONC 35.4 g/dL (33.2-36.2); MEAN CORPUSCULAR VOLUME 94.3 fL (81-97); MEAN PLATELET VOLUME 9.4 fL (7.4-10.4); RED BLOOD COUNT 1.86 x10^6/uL (4.38-5.82); RED CELL DISTRIBUTION WIDTH 17.3 % (9.4-14.8)
[2018-02-15 06:12] LABS: PLATELET COUNT 5 x10^3/uL (130-400)
[2018-02-15 06:15] LABS: MD YES
[2018-02-15 07:31] LABS: LYMPH#(MANUAL) 0.14 x10^3/uL (1-3.4); LYMPHS% (MANUAL) 28 % (22-44); MONOS#(MANUAL) 0.09 x10^3/uL (0.3-2.7); MONOS% (MANUAL) 17 % (2-9); SEG#(MANUAL) 0.01 x10^3/uL (1.8-6.8); SEGS% (MANUAL) 1 % (42-75)
[2018-02-15 07:33] LABS: PROGRANULOCYTES# (MANUAL) 0.27 x10^3/uL (0-0)
[2018-02-15 07:34] LABS: <PLATELET ESTIMATE> DECREASED; <PLT MORPHOLOGY> QNS FOR PLT MORPH; ANISOCYTOSIS 1+; OVALOCYTES 1+
[2018-02-15 07:36] LABS: OTHER CELLS # (MANUAL) 0.27 x10^3/uL (0-0); OTHER CELLS % (MANUAL) 54 % (0-0)
[2018-02-15] MEDS ORDERED: FUROSEMIDE 40 MG/4 ML IV ONE (08:00)
[2018-02-15] MEDS: ACETAMINOPHEN 325 MG TABLET PO PRN (08:47)
[2018-02-15] MEDS: AMLODIPINE 10 MG TAB PO SCH (08:48)
[2018-02-15] MEDS: INSULIN LISPRO 100 UNITS/ML, PEN SQ-INSULIN SCH ×4 (08:48→22:14)
[2018-02-15] MEDS: POLYETHYLENE GLYCOL 17 GM PACKET PO SCH (08:49)
[2018-02-15 10:14] LABS: ALBUMIN 2.3 g/dL (3.4-5.0); ANION GAP 8 mmol/L (5-15); CALCIUM 8.1 mg/dL (8.5-10.1); CHLORIDE 100 mmol/L (98-107); CREATININE 1.11 mg/dL (0.7-1.3)
[2018-02-15] MEDS: DIPHENHYDRAMINE 50 MG/ML, 1ML IVPush SCH (17:04)
[2018-02-15] MEDS: FAMOTIDINE 20 MG/2 ML IVPush SCH (17:04)
[2018-02-15] MEDS: ONDANSETRON 2MG/ML, 2ML IVPush SCH (17:04)
[2018-02-15] MEDS: SODIUM CHLORIDE 0.9% IV SCH (17:33)
[2018-02-15] MEDS: AZACITIDINE IV SCH (17:33)
[2018-02-15] MEDS: HYDROcodone/APAP 5/325 TABLET PO PRN ×2 (19:16→22:02)
[2018-02-15] MEDS ORDERED: DIPHENHYDRAMINE 50 MG/ML, 1ML IVPush SCH (20:00)
[2018-02-15] MEDS ORDERED: FAMOTIDINE 20 MG/2 ML IVPush SCH (20:00)
[2018-02-15] MEDS ORDERED: ONDANSETRON 2MG/ML, 2ML IVPush SCH (20:00)
[2018-02-15] MEDS ORDERED: AZACITIDINE IV SCH (20:30)
[2018-02-15] MEDS ORDERED: SODIUM CHLORIDE 0.9% IV SCH (20:30)
[2018-02-15] MEDS: ATORVASTATIN 10 MG TABLET PO SCH (22:02)
[2018-02-15] MEDS: maalox/diphenh/lido/sucralfate 5 ML PO PRN (22:35)
[2018-02-16 03:50] VITALS: BP 105/69
[2018-02-16 06:05] LABS: MEAN CORPUSCULAR HEMOGLOBIN 33.7 pg (27.5-34.5); MEAN CORPUSCULAR HGB CONC 35.9 g/dL (33.2-36.2); MEAN CORPUSCULAR VOLUME 93.6 fL (81-97); MEAN PLATELET VOLUME 7.7 fL (7.4-10.4); RED BLOOD COUNT 2.15 x10^6/uL (4.38-5.82); RED CELL DISTRIBUTION WIDTH 17.1 % (9.4-14.8)
[2018-02-16 06:08] LABS: PLATELET COUNT 10 x10^3/uL (130-400)
[2018-02-16 06:12] LABS: ALBUMIN 2.2 g/dL (3.4-5.0); ANION GAP 9 mmol/L (5-15); CALCIUM 6.4 mg/dL (8.5-10.1); CHLORIDE 100 mmol/L (98-107); CREATININE 1.12 mg/dL (0.7-1.3)
[2018-02-16] MEDS: CARVEDILOL 3.125 MG TABLET PO SCH ×2 (06:31→17:50)
[2018-02-16] MEDS: CEFEPIME 2 GM in DEXTROSE 5% 100 ML IV SCH ×3 (06:32→23:02)
[2018-02-16 06:46] VITALS: BP 115/60
[2018-02-16 06:57] LABS: MD YES
[2018-02-16 06:58] LABS: SEG#(MANUAL) 0.07 x10^3/uL (1.8-6.8); SEGS% (MANUAL) 10 % (42-75)
[2018-02-16 06:59] LABS: <PLATELET ESTIMATE> DECREASED; ANISOCYTOSIS 1+; LYMPH#(MANUAL) 0.15 x10^3/uL (1-3.4); LYMPHS% (MANUAL) 22 % (22-44); MONOS#(MANUAL) 0.04 x10^3/uL (0.3-2.7); MONOS% (MANUAL) 5 % (2-9); OTHER CELLS # (MANUAL) 0.44 x10^3/uL (0-0)
[2018-02-16 07:00] LABS: <PLT MORPHOLOGY> QNS FOR PLT MORPH
[2018-02-16 07:01] LABS: OTHER CELLS % (MANUAL) 63 % (0-0); OVALOCYTES 1+
[2018-02-16] MEDS: INSULIN LISPRO 100 UNITS/ML, PEN SQ-INSULIN SCH ×4 (07:43→19:54)
[2018-02-16] MEDS: AMLODIPINE 10 MG TAB PO SCH (10:05)
[2018-02-16] MEDS: POLYETHYLENE GLYCOL 17 GM PACKET PO SCH (10:18)
[2018-02-16 12:13] VITALS: BP 125/60
[2018-02-16] MEDS: ONDANSETRON 2MG/ML, 2ML IVPush SCH (16:56)
[2018-02-16] MEDS: DIPHENHYDRAMINE 50 MG/ML, 1ML IVPush SCH (16:56)
[2018-02-16] MEDS: FAMOTIDINE 20 MG/2 ML IVPush SCH (16:56)
[2018-02-16] MEDS: SODIUM CHLORIDE 0.9% IV SCH (17:45)
[2018-02-16] MEDS: AZACITIDINE IV SCH (17:45)
[2018-02-16 19:42] VITALS: BP 101/61
[2018-02-16] MEDS: ATORVASTATIN 10 MG TABLET PO SCH (19:52)
[2018-02-16] MEDS: HYDROcodone/APAP 5/325 TABLET PO PRN (19:59)
[2018-02-16 23:29] VITALS: BP 102/64
[2018-02-17] VITALS (8 sets, daily range): BP systolic 104–121; BP diastolic 65–78
[2018-02-17 05:15] LABS: MEAN CORPUSCULAR HEMOGLOBIN 33.5 pg (27.5-34.5); MEAN CORPUSCULAR HGB CONC 35.7 g/dL (33.2-36.2); MEAN CORPUSCULAR VOLUME 93.8 fL (81-97); MEAN PLATELET VOLUME 8.5 fL (7.4-10.4); RED BLOOD COUNT 2.16 x10^6/uL (4.38-5.82); RED CELL DISTRIBUTION WIDTH 16.3 % (9.4-14.8)
[2018-02-17 05:16] LABS: PLATELET COUNT 7 x10^3/uL (130-400)
[2018-02-17 05:20] LABS: ALBUMIN 2.2 g/dL (3.4-5.0); ANION GAP 7 mmol/L (5-15); CALCIUM 7.8 mg/dL (8.5-10.1); CHLORIDE 98 mmol/L (98-107); CREATININE 1.08 mg/dL (0.7-1.3)
[2018-02-17] MEDS: CARVEDILOL 3.125 MG TABLET PO SCH (05:47)
[2018-02-17 05:51] LABS: MD YES
[2018-02-17 06:01] LABS: LYMPH#(MANUAL) 0.26 x10^3/uL (1-3.4); LYMPHS% (MANUAL) 37 % (22-44); MONOS#(MANUAL) 0.01 x10^3/uL (0.3-2.7); MONOS% (MANUAL) 1 % (2-9); SEG#(MANUAL) 0.05 x10^3/uL (1.8-6.8); SEGS% (MANUAL) 7 % (42-75)
[2018-02-17 06:02] LABS: OTHER CELLS # (MANUAL) 0.39 x10^3/uL (0-0)
[2018-02-17 06:06] LABS: ANISOCYTOSIS 1+; OTHER CELLS % (MANUAL) 55 % (0-0)
[2018-02-17 06:07] LABS: <PLATELET ESTIMATE> DECREASED; <PLT MORPHOLOGY> QNS FOR PLT MORPH
[2018-02-17 06:08] LABS: OVALOCYTES 1+; POLYCHROMASIA 1+
[2018-02-17] MEDS: CEFEPIME 2 GM in DEXTROSE 5% 100 ML IV SCH ×3 (07:35→23:28)
[2018-02-17] MEDS: AMLODIPINE 10 MG TAB PO SCH (08:27)
[2018-02-17] MEDS: INSULIN LISPRO 100 UNITS/ML, PEN SQ-INSULIN SCH ×4 (08:27→21:04)
[2018-02-17] MEDS: POLYETHYLENE GLYCOL 17 GM PACKET PO SCH (08:27)
[2018-02-17] MEDS ORDERED: DIPHENHYDRAMINE 50 MG/ML, 1ML IVPush ONE (11:30)
[2018-02-17] MEDS: ACETAMINOPHEN 325 MG TABLET PO PRN (14:37)
[2018-02-17] MEDS: CARVEDILOL 6.25 MG TABLET PO SCH (17:13)
[2018-02-17] MEDS: ATORVASTATIN 10 MG TABLET PO SCH (21:03)
[2018-02-18] VITALS (15 sets, daily range): BP systolic 101–121; BP diastolic 59–74
[2018-02-18 05:47] LABS: ALBUMIN 2.3 g/dL (3.4-5.0); ANION GAP 7 mmol/L (5-15); CALCIUM 8.2 mg/dL (8.5-10.1); CHLORIDE 99 mmol/L (98-107)
[2018-02-18] MEDS: CARVEDILOL 6.25 MG TABLET PO SCH ×2 (06:07→17:19)
[2018-02-18 06:20] LABS: MEAN CORPUSCULAR HEMOGLOBIN 32.8 pg (27.5-34.5); MEAN CORPUSCULAR VOLUME 93.6 fL (81-97); MEAN PLATELET VOLUME 8.8 fL (7.4-10.4); RED BLOOD COUNT 1.98 x10^6/uL (4.38-5.82); RED CELL DISTRIBUTION WIDTH 16.6 % (9.4-14.8)
[2018-02-18 06:25] LABS: PLATELET COUNT 6 x10^3/uL (130-400)
[2018-02-18 06:29] LABS: MD YES
[2018-02-18 06:35] LABS: EOS#(MANUAL) 0.01 x10^3/uL (0.0-0.4); EOS% (MANUAL) 2 % (1-7); MONOS#(MANUAL) 0.01 x10^3/uL (0.3-2.7); MONOS% (MANUAL) 2 % (2-9)
[2018-02-18 06:36] LABS: OTHER CELLS # (MANUAL) 0.32 x10^3/uL (0-0); OTHER CELLS % (MANUAL) 54 % (0-0)
[2018-02-18 06:37] LABS: LYMPH#(MANUAL) 0.24 x10^3/uL (1-3.4); LYMPHS% (MANUAL) 40 % (22-44); SEG#(MANUAL) 0.01 x10^3/uL (1.8-6.8); SEGS% (MANUAL) 2 % (42-75)
[2018-02-18 06:38] LABS: <PLATELET ESTIMATE> DECREASED; <PLT MORPHOLOGY> QNS FOR PLT MORPH; ANISOCYTOSIS 1+; OVALOCYTES 1+
[2018-02-18] MEDS: INSULIN LISPRO 100 UNITS/ML, PEN SQ-INSULIN SCH ×4 (08:09→20:44)
[2018-02-18] MEDS: POLYETHYLENE GLYCOL 17 GM PACKET PO SCH (08:10)
[2018-02-18] MEDS: CEFEPIME 2 GM in DEXTROSE 5% 100 ML IV SCH ×3 (12:48→23:14)
[2018-02-18] MEDS: ATORVASTATIN 10 MG TABLET PO SCH (20:43)
[2018-02-19 02:00] VITALS: BP 112/67
[2018-02-19 04:52] VITALS: BP 118/69
[2018-02-19] MEDS: CARVEDILOL 6.25 MG TABLET PO SCH ×2 (05:02→17:51)
[2018-02-19 05:27] LABS: MEAN CORPUSCULAR HEMOGLOBIN 33.9 pg (27.5-34.5); MEAN CORPUSCULAR HGB CONC 36.2 g/dL (33.2-36.2); MEAN CORPUSCULAR VOLUME 93.5 fL (81-97); RED BLOOD COUNT 2.09 x10^6/uL (4.38-5.82); RED CELL DISTRIBUTION WIDTH 15.6 % (9.4-14.8)
[2018-02-19 05:33] LABS: ALBUMIN 2.4 g/dL (3.4-5.0); ANION GAP 5 mmol/L (5-15); CALCIUM 8.3 mg/dL (8.5-10.1); CHLORIDE 97 mmol/L (98-107); CREATININE 1.06 mg/dL (0.7-1.3)
[2018-02-19 05:58] LABS: MD YES
[2018-02-19 06:00] LABS: MEAN PLATELET VOLUME 8.7 fL (7.4-10.4)
[2018-02-19 06:01] LABS: PLATELET COUNT 11 x10^3/uL (130-400)
[2018-02-19 06:42] LABS: LYMPH#(MANUAL) 0.46 x10^3/uL (1-3.4); LYMPHS% (MANUAL) 65 % (22-44); SEG#(MANUAL) 0.01 x10^3/uL (1.8-6.8); SEGS% (MANUAL) 2 % (42-75)
[2018-02-19 06:44] LABS: ANISOCYTOSIS 1+; OTHER CELLS # (MANUAL) 0.23 x10^3/uL (0-0); OTHER CELLS % (MANUAL) 33 % (0-0)
[2018-02-19 06:46] LABS: <PLATELET ESTIMATE> DECREASED; <PLT MORPHOLOGY> QNS FOR PLT MORPH; OVALOCYTES 1+
[2018-02-19 07:28] VITALS: BP 122/69
[2018-02-19] MEDS: INSULIN LISPRO 100 UNITS/ML, PEN SQ-INSULIN SCH ×4 (07:39→20:30)
[2018-02-19] MEDS: CEFEPIME 2 GM in DEXTROSE 5% 100 ML IV SCH ×3 (07:40→23:25)
[2018-02-19] MEDS: POLYETHYLENE GLYCOL 17 GM PACKET PO SCH (09:31)
[2018-02-19] MEDS: HYDROcodone/APAP 5/325 TABLET PO PRN (12:09)
[2018-02-19 13:01] VITALS: BP 110/73
[2018-02-19 17:50] VITALS: BP 139/72
[2018-02-19 19:08] VITALS: BP 122/67
[2018-02-19] MEDS: ATORVASTATIN 10 MG TABLET PO SCH (20:29)
[2018-02-20] VITALS (12 sets, daily range): BP systolic 96–135; BP diastolic 57–86
[2018-02-20] MEDS: HYDROcodone/APAP 5/325 TABLET PO PRN ×3 (03:42→23:52)
[2018-02-20] MEDS: CARVEDILOL 6.25 MG TABLET PO SCH ×2 (05:16→17:58)
[2018-02-20 05:53] LABS: ALBUMIN 2.4 g/dL (3.4-5.0); ANION GAP 7 mmol/L (5-15); CHLORIDE 96 mmol/L (98-107); CREATININE 1.07 mg/dL (0.7-1.3)
[2018-02-20 06:25] LABS: MEAN CORPUSCULAR HEMOGLOBIN 33.4 pg (27.5-34.5); MEAN CORPUSCULAR HGB CONC 35.9 g/dL (33.2-36.2); RED BLOOD COUNT 1.99 x10^6/uL (4.38-5.82); RED CELL DISTRIBUTION WIDTH 15.9 % (9.4-14.8)
[2018-02-20 06:55] LABS: MEAN PLATELET VOLUME 9.1 fL (7.4-10.4)
[2018-02-20 06:59] LABS: MD YES
[2018-02-20 07:00] LABS: PLATELET COUNT 8 x10^3/uL (130-400)
[2018-02-20 07:19] LABS: BASOS#(MANUAL) 0.03 x10^3/uL (0-0.1); BASOS% (MANUAL) 4 % (0-1); LYMPH#(MANUAL) 0.28 x10^3/uL (1-3.4); LYMPHS% (MANUAL) 40 % (22-44); MONOS#(MANUAL) 0.11 x10^3/uL (0.3-2.7); MONOS% (MANUAL) 16 % (2-9); SEG#(MANUAL) 0.03 x10^3/uL (1.8-6.8); SEGS% (MANUAL) 4 % (42-75)
[2018-02-20 07:21] LABS: OTHER CELLS # (MANUAL) 0.25 x10^3/uL (0-0); OTHER CELLS % (MANUAL) 36 % (0-0)
[2018-02-20 07:22] LABS: <PLATELET ESTIMATE> DECREASED; <PLT MORPHOLOGY> QNS FOR PLT MORPH; ANISOCYTOSIS 1+; OVALOCYTES 1+
[2018-02-20] MEDS: CEFEPIME 2 GM in DEXTROSE 5% 100 ML IV SCH ×3 (07:36→23:52)
[2018-02-20] MEDS: INSULIN LISPRO 100 UNITS/ML, PEN SQ-INSULIN SCH ×4 (08:13→21:30)
[2018-02-20] MEDS: POLYETHYLENE GLYCOL 17 GM PACKET PO SCH (09:48)
[2018-02-20] MEDS ORDERED: SODIUM CHLORIDE 0.9%, 250ML IVBOLUS ONE (17:00)
[2018-02-20] MEDS: ATORVASTATIN 10 MG TABLET PO SCH (21:30)
[2018-02-21] VITALS (9 sets, daily range): BP systolic 98–134; BP diastolic 60–93
[2018-02-21] MEDS: CARVEDILOL 6.25 MG TABLET PO SCH (05:02)
[2018-02-21 05:49] LABS: CHLORIDE 98 mmol/L (98-107)
[2018-02-21 05:56] LABS: ALBUMIN 2.4 g/dL (3.4-5.0); ANION GAP 8 mmol/L (5-15); CALCIUM 8.1 mg/dL (8.5-10.1); CREATININE 0.99 mg/dL (0.7-1.3)
[2018-02-21 06:17] LABS: MEAN CORPUSCULAR HEMOGLOBIN 32.6 pg (27.5-34.5); MEAN CORPUSCULAR HGB CONC 35.4 g/dL (33.2-36.2); MEAN PLATELET VOLUME 8.6 fL (7.4-10.4); RED BLOOD COUNT 2.19 x10^6/uL (4.38-5.82); RED CELL DISTRIBUTION WIDTH 15.4 % (9.4-14.8)
[2018-02-21 06:20] LABS: PLATELET COUNT 5 x10^3/uL (130-400)
[2018-02-21 06:22] LABS: MD YES
[2018-02-21 06:36] LABS: LYMPH#(MANUAL) 0.24 x10^3/uL (1-3.4); LYMPHS% (MANUAL) 40 % (22-44); METAMYELOCYTES# (MANUAL) 0.02 x10^3/uL (0-0)
[2018-02-21 06:38] LABS: METAMYELOCYTES% (MANUAL) 3 % (0-1)
[2018-02-21 06:55] LABS: BAND#(MANUAL) 0.01 x10^3/uL; BANDS%(MANUAL) 1 % (0-7); SEG#(MANUAL) 0.02 x10^3/uL (1.8-6.8); SEGS% (MANUAL) 4 % (42-75)
[2018-02-21 06:56] LABS: OTHER CELLS # (MANUAL) 0.31 x10^3/uL (0-0); OTHER CELLS % (MANUAL) 52 % (0-0)
[2018-02-21 07:00] LABS: ANISOCYTOSIS 1+
[2018-02-21 07:01] LABS: <PLATELET ESTIMATE> DECREASED; <PLT MORPHOLOGY> NORMAL PLT MORPH; OVALOCYTES 1+
[2018-02-21] MEDS: CEFEPIME 2 GM in DEXTROSE 5% 100 ML IV SCH ×2 (08:28→21:19)
[2018-02-21] MEDS: INSULIN LISPRO 100 UNITS/ML, PEN SQ-INSULIN SCH ×4 (08:29→21:19)
[2018-02-21] MEDS: POLYETHYLENE GLYCOL 17 GM PACKET PO SCH (08:34)
[2018-02-21] MEDS: HYDROcodone/APAP 5/325 TABLET PO PRN ×2 (13:18→18:04)
[2018-02-21] MEDS ORDERED: AMIODARONE 150 MG in DEXTROSE 5% 100 ML IV ONE (15:30)
[2018-02-21] MEDS ORDERED: DIGOXIN 0.25 MG/ML, 2ML IVPush ONE (15:30)
[2018-02-21] MEDS ORDERED: AMIODARONE 900 MG in DEXTROSE 5% 482 ML IV PRN (15:30)
[2018-02-21] MEDS ORDERED: FILTER 0.22 MICRON IV ONE (15:30)
[2018-02-21] MEDS: METOPROLOL TARTRATE 25 MG TABLET PO SCH ×2 (17:47→22:52)
[2018-02-21] MEDS: ATORVASTATIN 10 MG TABLET PO SCH (21:20)
[2018-02-22] VITALS (11 sets, daily range): BP systolic 100–129; BP diastolic 62–77
[2018-02-22] MEDS: METOPROLOL TARTRATE 25 MG TABLET PO SCH ×2 (04:40→08:52)
[2018-02-22] MEDS: HYDROcodone/APAP 5/325 TABLET PO PRN ×2 (04:42→13:27)
[2018-02-22] MEDS: CEFEPIME 2 GM in DEXTROSE 5% 100 ML IV SCH ×3 (04:43→23:10)
[2018-02-22] MEDS: INSULIN LISPRO 100 UNITS/ML, PEN SQ-INSULIN SCH ×4 (07:50→20:58)
[2018-02-22 07:51] LABS: ALBUMIN 2.4 g/dL (3.4-5.0); ANION GAP 7 mmol/L (5-15); CALCIUM 8.2 mg/dL (8.5-10.1); CHLORIDE 98 mmol/L (98-107); CREATININE 0.93 mg/dL (0.7-1.3)
[2018-02-22 08:11] LABS: MEAN CORPUSCULAR HEMOGLOBIN 32.4 pg (27.5-34.5); MEAN CORPUSCULAR HGB CONC 35.3 g/dL (33.2-36.2); MEAN CORPUSCULAR VOLUME 91.8 fL (81-97); MEAN PLATELET VOLUME 7.9 fL (7.4-10.4); RED BLOOD COUNT 1.98 x10^6/uL (4.38-5.82); RED CELL DISTRIBUTION WIDTH 15.4 % (9.4-14.8)
[2018-02-22 08:12] LABS: PLATELET COUNT 10 x10^3/uL (130-400)
[2018-02-22 08:32] LABS: MD YES
[2018-02-22 08:40] LABS: BAND#(MANUAL) 0.01 x10^3/uL; BANDS%(MANUAL) 2 % (0-7); LYMPH#(MANUAL) 0.18 x10^3/uL (1-3.4); LYMPHS% (MANUAL) 30 % (22-44); METAMYELOCYTES# (MANUAL) 0.01 x10^3/uL (0-0); METAMYELOCYTES% (MANUAL) 2 % (0-1); MYELOCYTES# (MANUAL) 0.04 x10^3/uL (0-0); MYELOCYTES% (MANUAL) 6 % (0-0); SEG#(MANUAL) 0.04 x10^3/uL (1.8-6.8); SEGS% (MANUAL) 6 % (42-75)
[2018-02-22 08:44] LABS: NRBC % (MANUAL) 2 % (0-1); OTHER CELLS # (MANUAL) 0.32 x10^3/uL (0-0); OTHER CELLS % (MANUAL) 54 % (0-0)
[2018-02-22 08:45] LABS: ANISOCYTOSIS 1+
[2018-02-22 08:46] LABS: <PLATELET ESTIMATE> DECREASED; <PLT MORPHOLOGY> NORMAL PLT MORPH
[2018-02-22] MEDS: SPIRONOLACTONE 25 MG TABLET PO SCH (08:52)
[2018-02-22] MEDS: POLYETHYLENE GLYCOL 17 GM PACKET PO SCH (08:53)
[2018-02-22] MEDS: LISINOPRIL 5 MG TABLET PO SCH (10:10)
[2018-02-22] MEDS: AMIODARONE 200 MG TABLET PO SCH ×3 (11:20→20:57)
[2018-02-22] MEDS: CARVEDILOL 3.125 MG TABLET PO SCH (18:05)
[2018-02-22] MEDS: ATORVASTATIN 10 MG TABLET PO SCH (20:57)
[2018-02-22] MEDS ORDERED: INSULIN GLARGINE 100 UNITS/ML, PEN SQ-INSULIN SCH (21:00)
[2018-02-23] VITALS (12 sets, daily range): BP systolic 90–122; BP diastolic 44–75
[2018-02-23] MEDS ORDERED: AMIODARONE 150 MG in DEXTROSE 5% 100 ML IV ONE (01:00)
[2018-02-23] MEDS ORDERED: AMIODARONE 900 MG in DEXTROSE 5% 482 ML IV PRN (01:00)
[2018-02-23] MEDS ORDERED: FILTER 0.22 MICRON IV PRN (01:00)
[2018-02-23] MEDS: HYDROcodone/APAP 5/325 TABLET PO PRN ×4 (02:46→22:11)
[2018-02-23] MEDS: CARVEDILOL 3.125 MG TABLET PO SCH ×2 (05:52→17:42)
[2018-02-23 06:00] LABS: MEAN CORPUSCULAR HEMOGLOBIN 31.5 pg (27.5-34.5); MEAN CORPUSCULAR HGB CONC 34.5 g/dL (33.2-36.2); MEAN CORPUSCULAR VOLUME 91.4 fL (81-97); MEAN PLATELET VOLUME 7.5 fL (7.4-10.4); RED BLOOD COUNT 2.24 x10^6/uL (4.38-5.82); RED CELL DISTRIBUTION WIDTH 14.9 % (9.4-14.8)
[2018-02-23 06:08] LABS: ALBUMIN 2.5 g/dL (3.4-5.0); ANION GAP 4 mmol/L (5-15); CALCIUM 8.1 mg/dL (8.5-10.1); CHLORIDE 95 mmol/L (98-107)
[2018-02-23 06:10] LABS: PLATELET COUNT 8 x10^3/uL (130-400)
[2018-02-23 06:11] LABS: CREATININE 1.02 mg/dL (0.7-1.3)
[2018-02-23 06:36] LABS: MD YES
[2018-02-23 06:46] LABS: LYMPH#(MANUAL) 0.28 x10^3/uL (1-3.4); LYMPHS% (MANUAL) 46 % (22-44); MONOS#(MANUAL) 0.01 x10^3/uL (0.3-2.7); MONOS% (MANUAL) 1 % (2-9); SEG#(MANUAL) 0.01 x10^3/uL (1.8-6.8); SEGS% (MANUAL) 2 % (42-75)
[2018-02-23 06:48] LABS: <PLATELET ESTIMATE> DECREASED; <PLT MORPHOLOGY> NORMAL PLT MORPH; ANISOCYTOSIS 1+; NRBC % (MANUAL) 1 % (0-1); OTHER CELLS # (MANUAL) 0.31 x10^3/uL (0-0); OTHER CELLS % (MANUAL) 51 % (0-0)
[2018-02-23] MEDS: CEFEPIME 2 GM in DEXTROSE 5% 100 ML IV SCH ×3 (07:41→23:29)
[2018-02-23] MEDS: INSULIN LISPRO 100 UNITS/ML, PEN SQ-INSULIN SCH ×4 (07:42→21:21)
[2018-02-23] MEDS: SPIRONOLACTONE 25 MG TABLET PO SCH (08:03)
[2018-02-23] MEDS: POLYETHYLENE GLYCOL 17 GM PACKET PO SCH (08:03)
[2018-02-23] MEDS: LISINOPRIL 5 MG TABLET PO SCH (08:04)
[2018-02-23 18:52] LABS: MEAN CORPUSCULAR HEMOGLOBIN 33.3 pg (27.5-34.5); MEAN CORPUSCULAR HGB CONC 36.5 g/dL (33.2-36.2); MEAN CORPUSCULAR VOLUME 91.4 fL (81-97); MEAN PLATELET VOLUME 7.7 fL (7.4-10.4); RED BLOOD COUNT 2.02 x10^6/uL (4.38-5.82); RED CELL DISTRIBUTION WIDTH 14.6 % (9.4-14.8)
[2018-02-23 18:56] LABS: PLATELET COUNT 11 x10^3/uL (130-400)
[2018-02-23 19:00] LABS: MD YES
[2018-02-23 19:11] LABS: POTASSIUM,URINE RANDOM 21 mmol/L; SODIUM,URINE RANDOM 18 mmol/L
[2018-02-23 19:13] LABS: CHLORIDE,URINE RANDOM < 10 mmol/L
[2018-02-23 19:13] LABS: EOS#(MANUAL) 0.02 x10^3/uL (0.0-0.4); EOS% (MANUAL) 2 % (1-7); LYMPH#(MANUAL) 0.36 x10^3/uL (1-3.4); LYMPHS% (MANUAL) 40 % (22-44); MONOS#(MANUAL) 0.04 x10^3/uL (0.3-2.7); MONOS% (MANUAL) 4 % (2-9); MYELOCYTES# (MANUAL) 0.13 x10^3/uL (0-0); MYELOCYTES% (MANUAL) 14 % (0-0); SEG#(MANUAL) 0.04 x10^3/uL (1.8-6.8); SEGS% (MANUAL) 4 % (42-75)
[2018-02-23 19:15] LABS: OTHER CELLS # (MANUAL) 0.32 x10^3/uL (0-0); OTHER CELLS % (MANUAL) 36 % (0-0)
[2018-02-23 19:17] LABS: POLYCHROMASIA 1+; ROULEAUX 2+
[2018-02-23 19:18] LABS: <PLATELET ESTIMATE> DECREASED; <PLT MORPHOLOGY> NORMAL PLT MORPH
[2018-02-23 19:20] LABS: OSMOLALITY,URINE 343 mOsm/kg (500-850)
[2018-02-23 19:28] LABS: INTERNATIONAL NORMALIZED RATIO 1.44 (0.93-1.1); PROTHROMBIN TIME 14.7 Seconds (9.6-11.5)
[2018-02-23] MEDS: ATORVASTATIN 10 MG TABLET PO SCH (21:20)
[2018-02-23] MEDS: INSULIN GLARGINE 100 UNITS/ML, PEN SQ-INSULIN SCH (21:21)
[2018-02-24] VITALS (13 sets, daily range): BP systolic 101–137; BP diastolic 11–73
[2018-02-24] MEDS: HYDROcodone/APAP 5/325 TABLET PO PRN (05:36)
[2018-02-24] MEDS: CARVEDILOL 3.125 MG TABLET PO SCH ×2 (05:36→17:45)
[2018-02-24 06:20] LABS: MEAN CORPUSCULAR HEMOGLOBIN 32.3 pg (27.5-34.5); MEAN CORPUSCULAR HGB CONC 35.3 g/dL (33.2-36.2); MEAN CORPUSCULAR VOLUME 91.4 fL (81-97); MEAN PLATELET VOLUME 7.5 fL (7.4-10.4); RED BLOOD COUNT 2.43 x10^6/uL (4.38-5.82); RED CELL DISTRIBUTION WIDTH 14.5 % (9.4-14.8)
[2018-02-24 06:24] LABS: CALCIUM 8.2 mg/dL (8.5-10.1); CHLORIDE 97 mmol/L (98-107)
[2018-02-24 06:27] LABS: ALBUMIN 2.4 g/dL (3.4-5.0); ANION GAP 10 mmol/L (5-15); CREATININE 0.98 mg/dL (0.7-1.3)
[2018-02-24 06:34] LABS: PLATELET COUNT 8 x10^3/uL (130-400)
[2018-02-24 07:03] LABS: MD YES
[2018-02-24 07:10] LABS: LYMPH#(MANUAL) 0.21 x10^3/uL (1-3.4); LYMPHS% (MANUAL) 30 % (22-44); METAMYELOCYTES# (MANUAL) 0.04 x10^3/uL (0-0); METAMYELOCYTES% (MANUAL) 6 % (0-1); MONOS#(MANUAL) 0.01 x10^3/uL (0.3-2.7); MONOS% (MANUAL) 2 % (2-9); MYELOCYTES# (MANUAL) 0.04 x10^3/uL (0-0); MYELOCYTES% (MANUAL) 6 % (0-0); SEG#(MANUAL) 0.06 x10^3/uL (1.8-6.8); SEGS% (MANUAL) 8 % (42-75)
[2018-02-24 07:11] LABS: PROGRANULOCYTES# (MANUAL) 0.01 x10^3/uL (0-0); PROGRANULOCYTES% (MANUAL) 2 % (0-0)
[2018-02-24 07:16] LABS: OTHER CELLS # (MANUAL) 0.32 x10^3/uL (0-0); OTHER CELLS % (MANUAL) 46 % (0-0)
[2018-02-24 07:17] LABS: <PLATELET ESTIMATE> DECREASED; <PLT MORPHOLOGY> NORMAL PLT MORPH; ANISOCYTOSIS 1+
[2018-02-24] MEDS: CEFEPIME 2 GM in DEXTROSE 5% 100 ML IV SCH ×3 (07:39→23:19)
[2018-02-24] MEDS: INSULIN LISPRO 100 UNITS/ML, PEN SQ-INSULIN SCH ×4 (09:37→20:36)
[2018-02-24] MEDS: LISINOPRIL 5 MG TABLET PO SCH (09:38)
[2018-02-24] MEDS: MORPHINE SULFATE 4 MG/ML, 1ML IVPush PRN ×2 (09:38→17:45)
[2018-02-24] MEDS: SPIRONOLACTONE 25 MG TABLET PO SCH (09:38)
[2018-02-24] MEDS: POLYETHYLENE GLYCOL 17 GM PACKET PO SCH (09:38)
[2018-02-24] MEDS: AMIODARONE 200 MG TABLET PO SCH ×2 (09:49→20:34)
[2018-02-24] MEDS: ATORVASTATIN 10 MG TABLET PO SCH (20:34)
[2018-02-24] MEDS: INSULIN GLARGINE 100 UNITS/ML, PEN SQ-INSULIN SCH (20:35)
[2018-02-25] VITALS (8 sets, daily range): BP systolic 108–133; BP diastolic 55–70
[2018-02-25] MEDS: CARVEDILOL 3.125 MG TABLET PO SCH ×2 (06:15→18:00)
[2018-02-25] MEDS: CEFEPIME 2 GM in DEXTROSE 5% 100 ML IV SCH ×2 (06:32→15:52)
[2018-02-25 06:39] LABS: MEAN CORPUSCULAR HEMOGLOBIN 32.1 pg (27.5-34.5); MEAN CORPUSCULAR HGB CONC 35.3 g/dL (33.2-36.2); MEAN CORPUSCULAR VOLUME 90.8 fL (81-97); MEAN PLATELET VOLUME 8.7 fL (7.4-10.4); RED BLOOD COUNT 2.36 x10^6/uL (4.38-5.82); RED CELL DISTRIBUTION WIDTH 14.5 % (9.4-14.8)
[2018-02-25] MEDS: maalox/diphenh/lido/sucralfate 5 ML PO PRN (06:39)
[2018-02-25 06:41] LABS: PLATELET COUNT 6 x10^3/uL (130-400)
[2018-02-25 06:44] LABS: ALANINE AMINOTRANSFERASE 25 U/L (12-78); ALBUMIN 2.3 g/dL (3.4-5.0); ANION GAP 7 mmol/L (5-15); CALCIUM 8.2 mg/dL (8.5-10.1); CHLORIDE 101 mmol/L (98-107)
[2018-02-25 06:47] LABS: ALKALINE PHOSPHATASE 91 U/L (45-117); BILIRUBIN,TOTAL 1.2 mg/dL (0.2-1.0); TOTAL PROTEIN 6.4 g/dL (6.4-8.2)
[2018-02-25] MEDS ORDERED: ACETAMINOPHEN 325 MG TABLET PO ONE (07:00)
[2018-02-25] MEDS ORDERED: DIPHENHYDRAMINE 50 MG/ML, 1ML IVPush ONE (07:00)
[2018-02-25 07:07] LABS: MD YES
[2018-02-25 07:56] LABS: EOS#(MANUAL) 0.01 x10^3/uL (0.0-0.4); EOS% (MANUAL) 1 % (1-7); LYMPH#(MANUAL) 0.28 x10^3/uL (1-3.4); LYMPHS% (MANUAL) 40 % (22-44); MONOS#(MANUAL) 0.06 x10^3/uL (0.3-2.7); MONOS% (MANUAL) 8 % (2-9); MYELOCYTES# (MANUAL) 0.01 x10^3/uL (0-0); MYELOCYTES% (MANUAL) 2 % (0-0); SEG#(MANUAL) 0.01 x10^3/uL (1.8-6.8); SEGS% (MANUAL) 2 % (42-75)
[2018-02-25 07:57] LABS: <PLATELET ESTIMATE> DECREASED; <PLT MORPHOLOGY> NORMAL PLT MORPH; ANISOCYTOSIS 1+; OTHER CELLS # (MANUAL) 0.33 x10^3/uL (0-0); OTHER CELLS % (MANUAL) 47 % (0-0)
[2018-02-25] MEDS: SPIRONOLACTONE 25 MG TABLET PO SCH (08:15)
[2018-02-25] MEDS: AMIODARONE 200 MG TABLET PO SCH ×3 (08:16→21:10)
[2018-02-25] MEDS: LISINOPRIL 5 MG TABLET PO SCH (08:16)
[2018-02-25] MEDS: POLYETHYLENE GLYCOL 17 GM PACKET PO SCH (08:16)
[2018-02-25] MEDS: INSULIN LISPRO 100 UNITS/ML, PEN SQ-INSULIN SCH ×4 (08:17→20:59)
[2018-02-25] MEDS: HYDROcodone/APAP 5/325 TABLET PO PRN (11:56)
[2018-02-25] MEDS: ATORVASTATIN 10 MG TABLET PO SCH ×2 (20:58→21:10)
[2018-02-25] MEDS: INSULIN GLARGINE 100 UNITS/ML, PEN SQ-INSULIN SCH (21:00)
[2018-02-26] VITALS (8 sets, daily range): BP systolic 100–135; BP diastolic 63–76
[2018-02-26] MEDS: CEFEPIME 2 GM in DEXTROSE 5% 100 ML IV SCH ×4 (00:28→23:56)
[2018-02-26] MEDS: MORPHINE SULFATE 4 MG/ML, 1ML IVPush PRN ×2 (00:58→21:35)
[2018-02-26 02:02] LABS: MEAN CORPUSCULAR HEMOGLOBIN 32.8 pg (27.5-34.5); MEAN CORPUSCULAR VOLUME 91.2 fL (81-97); RED BLOOD COUNT 2.38 x10^6/uL (4.38-5.82); RED CELL DISTRIBUTION WIDTH 14.7 % (9.4-14.8)
[2018-02-26] MEDS: ACETAMINOPHEN 325 MG TABLET PO PRN (02:12)
[2018-02-26 02:20] LABS: MEAN PLATELET VOLUME 8.7 fL (7.4-10.4)
[2018-02-26 02:22] LABS: MD YES; PLATELET COUNT 15 x10^3/uL (130-400)
[2018-02-26 02:28] LABS: LYMPHS% (MANUAL) 40 % (22-44); MONOS#(MANUAL) 0.16 x10^3/uL (0.3-2.7); MONOS% (MANUAL) 16 % (2-9); MYELOCYTES# (MANUAL) 0.02 x10^3/uL (0-0); MYELOCYTES% (MANUAL) 2 % (0-0); SEG#(MANUAL) 0.08 x10^3/uL (1.8-6.8); SEGS% (MANUAL) 8 % (42-75)
[2018-02-26 02:31] LABS: OTHER CELLS # (MANUAL) 0.34 x10^3/uL (0-0); OTHER CELLS % (MANUAL) 34 % (0-0)
[2018-02-26 02:32] LABS: ANISOCYTOSIS 1+
[2018-02-26 02:33] LABS: <PLATELET ESTIMATE> DECREASED; <PLT MORPHOLOGY> NORMAL PLT MORPH
[2018-02-26] MEDS ORDERED: AMIODARONE 200 MG TABLET PO ONE (03:30)
[2018-02-26 04:38] LABS: MICROSCOPIC AUTO
[2018-02-26 04:41] LABS: CULTURE INDICATED? NO
[2018-02-26] MEDS: CARVEDILOL 3.125 MG TABLET PO SCH ×2 (06:05→18:31)
[2018-02-26] MEDS: LISINOPRIL 5 MG TABLET PO SCH (08:12)
[2018-02-26] MEDS: SPIRONOLACTONE 25 MG TABLET PO SCH (08:12)
[2018-02-26] MEDS: POLYETHYLENE GLYCOL 17 GM PACKET PO SCH (08:13)
[2018-02-26] MEDS: AMIODARONE 200 MG TABLET PO SCH ×2 (08:13→20:20)
[2018-02-26] MEDS: INSULIN LISPRO 100 UNITS/ML, PEN SQ-INSULIN SCH ×4 (08:32→20:26)
[2018-02-26] MEDS: HYDROcodone/APAP 5/325 TABLET PO PRN ×2 (16:22→23:57)
[2018-02-26] MEDS: ATORVASTATIN 10 MG TABLET PO SCH (20:20)
[2018-02-26] MEDS: INSULIN GLARGINE 100 UNITS/ML, PEN SQ-INSULIN SCH (20:25)
[2018-02-27] VITALS (9 sets, daily range): BP systolic 92–121; BP diastolic 56–69
[2018-02-27] MEDS: CARVEDILOL 3.125 MG TABLET PO SCH ×3 (06:11→20:25)
[2018-02-27 06:20] LABS: ANION GAP 7 mmol/L (5-15); CALCIUM 8.4 mg/dL (8.5-10.1); CHLORIDE 101 mmol/L (98-107); CREATININE 1.06 mg/dL (0.7-1.3)
[2018-02-27 06:29] LABS: MEAN CORPUSCULAR HEMOGLOBIN 32.5 pg (27.5-34.5); MEAN CORPUSCULAR HGB CONC 35.5 g/dL (33.2-36.2); MEAN CORPUSCULAR VOLUME 91.6 fL (81-97); MEAN PLATELET VOLUME 8.6 fL (7.4-10.4); RED BLOOD COUNT 2.36 x10^6/uL (4.38-5.82); RED CELL DISTRIBUTION WIDTH 14.6 % (9.4-14.8)
[2018-02-27 06:32] LABS: PLATELET COUNT 7 x10^3/uL (130-400)
[2018-02-27 06:33] LABS: MD YES
[2018-02-27 06:39] LABS: LYMPH#(MANUAL) 0.31 x10^3/uL (1-3.4); LYMPHS% (MANUAL) 44 % (22-44); MONOS#(MANUAL) 0.06 x10^3/uL (0.3-2.7); MONOS% (MANUAL) 8 % (2-9)
[2018-02-27 06:40] LABS: NRBC % (MANUAL) 2 % (0-1)
[2018-02-27 06:41] LABS: MYELOCYTES# (MANUAL) 0.01 x10^3/uL (0-0); MYELOCYTES% (MANUAL) 2 % (0-0); OTHER CELLS # (MANUAL) 0.25 x10^3/uL (0-0); OTHER CELLS % (MANUAL) 36 % (0-0); SEG#(MANUAL) 0.07 x10^3/uL (1.8-6.8); SEGS% (MANUAL) 10 % (42-75)
[2018-02-27 06:42] LABS: ANISOCYTOSIS 1+
[2018-02-27 06:43] LABS: <PLATELET ESTIMATE> DECREASED; <PLT MORPHOLOGY> QNS FOR PLT MORPH
[2018-02-27] MEDS: SPIRONOLACTONE 25 MG TABLET PO SCH (08:18)
[2018-02-27] MEDS: INSULIN LISPRO 100 UNITS/ML, PEN SQ-INSULIN SCH ×4 (08:18→20:24)
[2018-02-27] MEDS: CEFEPIME 2 GM in DEXTROSE 5% 100 ML IV SCH ×3 (08:18→23:34)
[2018-02-27] MEDS: LISINOPRIL 5 MG TABLET PO SCH (08:19)
[2018-02-27] MEDS: POLYETHYLENE GLYCOL 17 GM PACKET PO SCH (08:19)
[2018-02-27] MEDS: AMIODARONE 200 MG TABLET PO SCH ×2 (08:19→20:25)
[2018-02-27] MEDS ORDERED: ZOLPIDEM 5MG TABLET PO PRN (17:00)
[2018-02-27] MEDS: INSULIN GLARGINE 100 UNITS/ML, PEN SQ-INSULIN SCH (20:23)
[2018-02-27] MEDS: HYDROcodone/APAP 5/325 TABLET PO PRN (20:24)
[2018-02-27] MEDS: ATORVASTATIN 10 MG TABLET PO SCH (20:24)
[2018-02-27] MEDS: MORPHINE SULFATE 4 MG/ML, 1ML IVPush PRN (23:34)
[2018-02-28 01:49] VITALS: BP 101/64
[2018-02-28 06:43] LABS: MEAN CORPUSCULAR HGB CONC 35.2 g/dL (33.2-36.2); MEAN CORPUSCULAR VOLUME 90.8 fL (81-97); MEAN PLATELET VOLUME 8.3 fL (7.4-10.4); RED BLOOD COUNT 2.54 x10^6/uL (4.38-5.82); RED CELL DISTRIBUTION WIDTH 14.4 % (9.4-14.8)
[2018-02-28] MEDS: MORPHINE SULFATE 4 MG/ML, 1ML IVPush PRN ×2 (06:47→16:18)
[2018-02-28 06:51] LABS: PLATELET COUNT 11 x10^3/uL (130-400)
[2018-02-28 07:19] LABS: MD YES
[2018-02-28 07:25] LABS: BASOS#(MANUAL) 0.02 x10^3/uL (0-0.1); BASOS% (MANUAL) 4 % (0-1); LYMPH#(MANUAL) 0.19 x10^3/uL (1-3.4); LYMPHS% (MANUAL) 32 % (22-44); MONOS#(MANUAL) 0.02 x10^3/uL (0.3-2.7); MONOS% (MANUAL) 4 % (2-9); SEG#(MANUAL) 0.05 x10^3/uL (1.8-6.8); SEGS% (MANUAL) 8 % (42-75)
[2018-02-28 07:26] LABS: <PLATELET ESTIMATE> DECREASED; <PLT MORPHOLOGY> NORMAL PLT MORPH; ANISOCYTOSIS 1+; OTHER CELLS # (MANUAL) 0.31 x10^3/uL (0-0); OTHER CELLS % (MANUAL) 52 % (0-0)
[2018-02-28 08:25] VITALS: BP 100/66
[2018-02-28] MEDS: CEFEPIME 2 GM in DEXTROSE 5% 100 ML IV SCH ×2 (08:26→16:08)
[2018-02-28] MEDS: INSULIN LISPRO 100 UNITS/ML, PEN SQ-INSULIN SCH ×4 (08:27→21:29)
[2018-02-28] MEDS: CARVEDILOL 3.125 MG TABLET PO SCH (08:28)
[2018-02-28] MEDS: SPIRONOLACTONE 25 MG TABLET PO SCH (08:28)
[2018-02-28] MEDS: LISINOPRIL 5 MG TABLET PO SCH (08:28)
[2018-02-28] MEDS: AMIODARONE 200 MG TABLET PO SCH ×3 (08:28→22:00)
[2018-02-28] MEDS: POLYETHYLENE GLYCOL 17 GM PACKET PO SCH (08:28)
[2018-02-28] MEDS: NYSTATIN 500,000 UNITS/5 ML UDC PO SCH ×4 (11:55→22:00)
[2018-02-28] MEDS: HYDROcodone/APAP 5/325 TABLET PO PRN (11:55)
[2018-02-28 16:00] VITALS: BP 97/69
[2018-02-28 18:44] LABS: MD YES; MEAN CORPUSCULAR HEMOGLOBIN 31.9 pg (27.5-34.5); MEAN CORPUSCULAR VOLUME 91.2 fL (81-97); MEAN PLATELET VOLUME 7.9 fL (7.4-10.4); RED BLOOD COUNT 2.25 x10^6/uL (4.38-5.82); RED CELL DISTRIBUTION WIDTH 14.4 % (9.4-14.8)
[2018-02-28 19:04] LABS: PLATELET COUNT 10 x10^3/uL (130-400)
[2018-02-28 20:23] VITALS: BP 108/52
[2018-02-28 20:53] LABS: LYMPH#(MANUAL) 0.29 x10^3/uL (1-3.4); LYMPHS% (MANUAL) 36 % (22-44); MONOS#(MANUAL) 0.05 x10^3/uL (0.3-2.7); MONOS% (MANUAL) 6 % (2-9); MYELOCYTES# (MANUAL) 0.02 x10^3/uL (0-0); MYELOCYTES% (MANUAL) 3 % (0-0); SEG#(MANUAL) 0.07 x10^3/uL (1.8-6.8); SEGS% (MANUAL) 9 % (42-75)
[2018-02-28 20:55] LABS: OTHER CELLS # (MANUAL) 0.37 x10^3/uL (0-0); OTHER CELLS % (MANUAL) 46 % (0-0)
[2018-02-28 20:57] LABS: <PLATELET ESTIMATE> DECREASED; ANISOCYTOSIS 1+
[2018-02-28 20:58] LABS: <PLT MORPHOLOGY> NORMAL PLT MORPH
[2018-02-28] MEDS ORDERED: INSULIN GLARGINE 100 UNITS/ML, PEN SQ-INSULIN SCH (21:00)
[2018-02-28] MEDS: CARVEDILOL 6.25 MG TABLET PO SCH ×2 (21:28→22:00)
[2018-02-28] MEDS: ATORVASTATIN 10 MG TABLET PO SCH ×2 (21:28→22:00)
[2018-02-28] MEDS ORDERED: VANCOMYCIN 1,500 MG in SODIUM CHLORIDE 0.9% 250 ML IV SCH (23:00)
[2018-02-28] MEDS ORDERED: ACETAMINOPHEN 650 MG SUPP ONE (23:07)
[2018-02-28] MEDS: MICAFUNGIN 100 MG in SODIUM CHLORIDE 0.9% 100 ML IV SCH (23:28)
[2018-02-28] MEDS: ACETAMINOPHEN 650 MG SUPP PR PRN (23:28)
[2018-03-01] VITALS (14 sets, daily range): BP systolic 93–124; BP diastolic 54–72
[2018-03-01] MEDS: CEFEPIME 2 GM in DEXTROSE 5% 100 ML IV SCH ×3 (00:39→16:57)
[2018-03-01] MEDS: NYSTATIN 500,000 UNITS/5 ML UDC PO SCH ×4 (05:02→20:22)
[2018-03-01 05:55] LABS: ALBUMIN 2.2 g/dL (3.4-5.0); ANION GAP 9 mmol/L (5-15); CHLORIDE 103 mmol/L (98-107)
[2018-03-01 06:03] LABS: ALANINE AMINOTRANSFERASE 19 U/L (12-78); ALKALINE PHOSPHATASE 81 U/L (45-117); BILIRUBIN,TOTAL 0.8 mg/dL (0.2-1.0); CALCIUM 8.3 mg/dL (8.5-10.1); CREATININE 1.92 mg/dL (0.7-1.3); TOTAL PROTEIN 6.6 g/dL (6.4-8.2)
[2018-03-01 06:26] LABS: MD YES; MEAN CORPUSCULAR HEMOGLOBIN 32.3 pg (27.5-34.5); MEAN CORPUSCULAR HGB CONC 35.1 g/dL (33.2-36.2); MEAN CORPUSCULAR VOLUME 92.2 fL (81-97); RED BLOOD COUNT 2.15 x10^6/uL (4.38-5.82); RED CELL DISTRIBUTION WIDTH 14.7 % (9.4-14.8)
[2018-03-01 06:29] LABS: PLATELET COUNT 7 x10^3/uL (130-400)
[2018-03-01 06:54] LABS: <PLATELET ESTIMATE> DECREASED; <PLT MORPHOLOGY> NORMAL PLT MORPH; ANISOCYTOSIS 1+; LYMPH#(MANUAL) 0.32 x10^3/uL (1-3.4); LYMPHS% (MANUAL) 46 % (22-44); MONOS#(MANUAL) 0.03 x10^3/uL (0.3-2.7); MONOS% (MANUAL) 4 % (2-9); OTHER CELLS # (MANUAL) 0.28 x10^3/uL (0-0); OTHER CELLS % (MANUAL) 40 % (0-0); SEG#(MANUAL) 0.07 x10^3/uL (1.8-6.8); SEGS% (MANUAL) 10 % (42-75)
[2018-03-01] MEDS: INSULIN LISPRO 100 UNITS/ML, PEN SQ-INSULIN SCH ×4 (07:00→21:57)
[2018-03-01] MEDS ORDERED: SODIUM CHLORIDE 0.9% 1,000 ML IV SCH (07:30)
[2018-03-01] MEDS: CARVEDILOL 6.25 MG TABLET PO SCH ×2 (09:00→20:21)
[2018-03-01] MEDS: POLYETHYLENE GLYCOL 17 GM PACKET PO SCH (09:00)
[2018-03-01] MEDS: AMIODARONE 200 MG TABLET PO SCH ×2 (09:00→20:21)
[2018-03-01] MEDS: DAPTOMYCIN 700 MG in SODIUM CHLORIDE 0.9% 100 ML IV SCH (14:01)
[2018-03-01] MEDS: maalox/diphenh/lido/sucralfate 5 ML PO PRN ×2 (15:10→21:57)
[2018-03-01] MEDS: ATORVASTATIN 10 MG TABLET PO SCH (20:21)
[2018-03-01] MEDS: INSULIN GLARGINE 100 UNITS/ML, PEN SQ-INSULIN SCH (21:57)
[2018-03-01] MEDS: ACETAMINOPHEN 650 MG SUPP PR PRN (21:58)
[2018-03-01] MEDS: SODIUM CHLORIDE 0.9% 1,000 ML IV SCH (22:02)
[2018-03-01] MEDS: MICAFUNGIN 100 MG in SODIUM CHLORIDE 0.9% 100 ML IV SCH (22:51)
[2018-03-01] MEDS: MORPHINE SULFATE 4 MG/ML, 1ML IVPush PRN (23:45)
[2018-03-02] VITALS (10 sets, daily range): BP systolic 105–125; BP diastolic 54–99
[2018-03-02] MEDS: CEFEPIME 2 GM in DEXTROSE 5% 100 ML IV SCH ×3 (00:35→16:30)
[2018-03-02] MEDS: MORPHINE SULFATE 4 MG/ML, 1ML IVPush PRN (02:47)
[2018-03-02] MEDS: NYSTATIN 500,000 UNITS/5 ML UDC PO SCH ×4 (05:02→21:20)
[2018-03-02 06:07] LABS: MEAN CORPUSCULAR HEMOGLOBIN 32.5 pg (27.5-34.5); MEAN CORPUSCULAR VOLUME 90.2 fL (81-97); MEAN PLATELET VOLUME 9.7 fL (7.4-10.4); RED BLOOD COUNT 2.23 x10^6/uL (4.38-5.82); RED CELL DISTRIBUTION WIDTH 14.3 % (9.4-14.8)
[2018-03-02 06:14] LABS: ALBUMIN 2.1 g/dL (3.4-5.0); ANION GAP 10 mmol/L (5-15); CALCIUM 8.5 mg/dL (8.5-10.1); CHLORIDE 108 mmol/L (98-107)
[2018-03-02 06:17] LABS: ALANINE AMINOTRANSFERASE 20 U/L (12-78); ALKALINE PHOSPHATASE 78 U/L (45-117); BILIRUBIN,TOTAL 0.8 mg/dL (0.2-1.0); PLATELET COUNT 7 x10^3/uL (130-400); TOTAL PROTEIN 6.5 g/dL (6.4-8.2)
[2018-03-02 06:26] LABS: MD YES
[2018-03-02 06:39] LABS: ANISOCYTOSIS 1+; LYMPH#(MANUAL) 0.25 x10^3/uL (1-3.4); LYMPHS% (MANUAL) 36 % (22-44); METAMYELOCYTES# (MANUAL) 0.02 x10^3/uL (0-0); METAMYELOCYTES% (MANUAL) 3 % (0-1); MONOS#(MANUAL) 0.04 x10^3/uL (0.3-2.7); MONOS% (MANUAL) 5 % (2-9); MYELOCYTES# (MANUAL) 0.01 x10^3/uL (0-0); MYELOCYTES% (MANUAL) 1 % (0-0); NRBC % (MANUAL) 1 % (0-1); OTHER CELLS # (MANUAL) 0.34 x10^3/uL (0-0); OTHER CELLS % (MANUAL) 48 % (0-0); SEG#(MANUAL) 0.05 x10^3/uL (1.8-6.8); SEGS% (MANUAL) 7 % (42-75)
[2018-03-02 06:40] LABS: <PLATELET ESTIMATE> DECREASED; <PLT MORPHOLOGY> NORMAL PLT MORPH
[2018-03-02] MEDS: INSULIN LISPRO 100 UNITS/ML, PEN SQ-INSULIN SCH ×4 (07:00→21:26)
[2018-03-02] MEDS: AMIODARONE 200 MG TABLET PO SCH ×2 (08:33→21:20)
[2018-03-02] MEDS: CARVEDILOL 6.25 MG TABLET PO SCH ×2 (08:33→21:20)
[2018-03-02] MEDS: POLYETHYLENE GLYCOL 17 GM PACKET PO SCH (08:41)
[2018-03-02] MEDS: DAPTOMYCIN 700 MG in SODIUM CHLORIDE 0.9% 100 ML IV SCH (12:00)
[2018-03-02] MEDS ORDERED: MAALOX/DIPHEN/LIDO 90 ML PO PRN ×2 (13:00→13:30)
[2018-03-02] MEDS: SODIUM CHLORIDE 0.9% 1,000 ML IV SCH (16:30)
[2018-03-02] MEDS: ATORVASTATIN 10 MG TABLET PO SCH (21:20)
[2018-03-02] MEDS: INSULIN GLARGINE 100 UNITS/ML, PEN SQ-INSULIN SCH (21:28)
[2018-03-02] MEDS: MICAFUNGIN 100 MG in SODIUM CHLORIDE 0.9% 100 ML IV SCH (22:46)
[2018-03-03] VITALS (9 sets, daily range): BP systolic 106–126; BP diastolic 48–71
[2018-03-03] MEDS: CEFEPIME 2 GM in DEXTROSE 5% 100 ML IV SCH ×3 (00:17→16:39)
[2018-03-03 05:17] LABS: MEAN CORPUSCULAR HEMOGLOBIN 32.3 pg (27.5-34.5); MEAN CORPUSCULAR HGB CONC 35.7 g/dL (33.2-36.2); MEAN CORPUSCULAR VOLUME 90.4 fL (81-97); RED BLOOD COUNT 2.16 x10^6/uL (4.38-5.82); RED CELL DISTRIBUTION WIDTH 14.4 % (9.4-14.8)
[2018-03-03 05:18] LABS: ALANINE AMINOTRANSFERASE 21 U/L (12-78); ALBUMIN 2.1 g/dL (3.4-5.0); ANION GAP 11 mmol/L (5-15); CALCIUM 8.5 mg/dL (8.5-10.1); CHLORIDE 108 mmol/L (98-107); CREATININE 1.43 mg/dL (0.7-1.3)
[2018-03-03 05:20] LABS: ALKALINE PHOSPHATASE 80 U/L (45-117); BILIRUBIN,TOTAL 0.8 mg/dL (0.2-1.0); TOTAL PROTEIN 6.5 g/dL (6.4-8.2)
[2018-03-03 05:48] LABS: PLATELET COUNT 8 x10^3/uL (130-400)
[2018-03-03 05:49] LABS: MD YES
[2018-03-03 05:57] LABS: <PLATELET ESTIMATE> DECREASED; ANISOCYTOSIS 1+; LYMPH#(MANUAL) 0.24 x10^3/uL (1-3.4); LYMPHS% (MANUAL) 30 % (22-44); METAMYELOCYTES# (MANUAL) 0.02 x10^3/uL (0-0); METAMYELOCYTES% (MANUAL) 2 % (0-1); MONOS#(MANUAL) 0.06 x10^3/uL (0.3-2.7); MONOS% (MANUAL) 8 % (2-9); MYELOCYTES# (MANUAL) 0.02 x10^3/uL (0-0); MYELOCYTES% (MANUAL) 3 % (0-0); NRBC % (MANUAL) 1 % (0-1); OTHER CELLS # (MANUAL) 0.35 x10^3/uL (0-0); OTHER CELLS % (MANUAL) 44 % (0-0); SEGS% (MANUAL) 13 % (42-75)
[2018-03-03 05:58] LABS: <PLT MORPHOLOGY> NORMAL PLT MORPH; POLYCHROMASIA 1+
[2018-03-03] MEDS: NYSTATIN 500,000 UNITS/5 ML UDC PO SCH ×3 (06:25→17:10)
[2018-03-03] MEDS: INSULIN LISPRO 100 UNITS/ML, PEN SQ-INSULIN SCH ×4 (09:15→22:08)
[2018-03-03] MEDS: CARVEDILOL 6.25 MG TABLET PO SCH ×2 (09:18→21:00)
[2018-03-03] MEDS: POLYETHYLENE GLYCOL 17 GM PACKET PO SCH (09:18)
[2018-03-03] MEDS: AMIODARONE 200 MG TABLET PO SCH (09:18)
[2018-03-03] MEDS: SODIUM CHLORIDE 0.9% 1,000 ML IV SCH (09:19)
[2018-03-03] MEDS ORDERED: CARVEDILOL 6.25 MG TABLET PO ONE (15:00)
[2018-03-03] MEDS: DAPTOMYCIN 700 MG in SODIUM CHLORIDE 0.9% 100 ML IV SCH (17:12)
[2018-03-03] MEDS ORDERED: METOPROLOL 1 MG/ML, 5ML IVPush ONE (18:00)
[2018-03-03] MEDS ORDERED: SODIUM CHLORIDE 0.9%, 500ML IVBOLUS ONE (21:00)
[2018-03-03] MEDS: ATORVASTATIN 10 MG TABLET PO SCH (21:00)
[2018-03-03] MEDS ORDERED: INSULIN GLARGINE 100 UNITS/ML, PEN SQ-INSULIN SCH (21:00)
[2018-03-04] VITALS (9 sets, daily range): BP systolic 97–120; BP diastolic 63–78
[2018-03-04] MEDS: AMIODARONE 200 MG TABLET PO SCH (00:31)
[2018-03-04] MEDS: NYSTATIN 500,000 UNITS/5 ML UDC PO SCH ×5 (01:08→21:15)
[2018-03-04] MEDS: MORPHINE SULFATE 4 MG/ML, 1ML IVPush PRN ×2 (01:08→21:44)
[2018-03-04] MEDS: CEFEPIME 2 GM in DEXTROSE 5% 100 ML IV SCH ×3 (03:43→20:06)
[2018-03-04] MEDS: MICAFUNGIN 100 MG in SODIUM CHLORIDE 0.9% 100 ML IV SCH (05:10)
[2018-03-04 05:27] LABS: ALANINE AMINOTRANSFERASE 20 U/L (12-78); ALBUMIN 2.1 g/dL (3.4-5.0); ANION GAP 9 mmol/L (5-15); CALCIUM 8.5 mg/dL (8.5-10.1); CHLORIDE 109 mmol/L (98-107)
[2018-03-04 05:30] LABS: ALKALINE PHOSPHATASE 81 U/L (45-117); BILIRUBIN,TOTAL 0.8 mg/dL (0.2-1.0); TOTAL PROTEIN 6.6 g/dL (6.4-8.2)
[2018-03-04 05:32] LABS: MEAN CORPUSCULAR HGB CONC 35.6 g/dL (33.2-36.2); RED CELL DISTRIBUTION WIDTH 14.2 % (9.4-14.8)
[2018-03-04 05:47] LABS: PLATELET COUNT 8 x10^3/uL (130-400)
[2018-03-04 05:49] LABS: MD YES
[2018-03-04 05:59] LABS: LYMPH#(MANUAL) 0.44 x10^3/uL (1-3.4); LYMPHS% (MANUAL) 40 % (22-44); METAMYELOCYTES# (MANUAL) 0.01 x10^3/uL (0-0); METAMYELOCYTES% (MANUAL) 1 % (0-1); MONOS#(MANUAL) 0.08 x10^3/uL (0.3-2.7); MONOS% (MANUAL) 7 % (2-9); MYELOCYTES# (MANUAL) 0.01 x10^3/uL (0-0); MYELOCYTES% (MANUAL) 1 % (0-0); SEG#(MANUAL) 0.07 x10^3/uL (1.8-6.8); SEGS% (MANUAL) 6 % (42-75)
[2018-03-04 06:00] LABS: OTHER CELLS % (MANUAL) 45 % (0-0)
[2018-03-04 06:01] LABS: ANISOCYTOSIS 1+
[2018-03-04 06:02] LABS: <PLATELET ESTIMATE> DECREASED; <PLT MORPHOLOGY> NORMAL PLT MORPH
[2018-03-04] MEDS: AMIODARONE 900 MG in DEXTROSE 5% 482 ML IV PRN (06:10)
[2018-03-04] MEDS: INSULIN LISPRO 100 UNITS/ML, PEN SQ-INSULIN SCH ×4 (07:00→21:17)
[2018-03-04] MEDS ORDERED: SODIUM CHLORIDE 0.9%, 500ML IVBOLUS ONE (08:00)
[2018-03-04] MEDS: POLYETHYLENE GLYCOL 17 GM PACKET PO SCH (09:00)
[2018-03-04] MEDS: CARVEDILOL 6.25 MG TABLET PO SCH (09:00)
[2018-03-04 10:26] LABS: MICROSCOPIC INDICATED
[2018-03-04 10:27] LABS: CULTURE INDICATED? YES
[2018-03-04] MEDS: DAPTOMYCIN 700 MG in SODIUM CHLORIDE 0.9% 100 ML IV SCH (13:39)
[2018-03-04] MEDS: SODIUM CHLORIDE 0.9% 1,000 ML IV SCH (13:39)
[2018-03-04] MEDS ORDERED: DIGOXIN 0.25 MG/ML, 2ML IVPush ONE (15:00)
[2018-03-04] MEDS: METOPROLOL TARTRATE 25 MG TABLET PO SCH ×2 (17:15→21:12)
[2018-03-04] MEDS ORDERED: INSULIN GLARGINE 100 UNITS/ML, PEN SQ-INSULIN SCH (21:00)
[2018-03-04] MEDS: ATORVASTATIN 10 MG TABLET PO SCH (21:12)
[2018-03-04 23:10] LABS: MEAN CORPUSCULAR HEMOGLOBIN 31.1 pg (27.5-34.5); MEAN CORPUSCULAR HGB CONC 34.5 g/dL (33.2-36.2); MEAN CORPUSCULAR VOLUME 90.3 fL (81-97); RED BLOOD COUNT 2.44 x10^6/uL (4.38-5.82); RED CELL DISTRIBUTION WIDTH 14.1 % (9.4-14.8)
[2018-03-04 23:12] LABS: PLATELET COUNT 9 x10^3/uL (130-400)
[2018-03-04 23:13] LABS: MD YES
[2018-03-04 23:24] LABS: EOS#(MANUAL) 0.01 x10^3/uL (0.0-0.4); EOS% (MANUAL) 2 % (1-7); LYMPH#(MANUAL) 0.29 x10^3/uL (1-3.4); LYMPHS% (MANUAL) 42 % (22-44); METAMYELOCYTES# (MANUAL) 0.01 x10^3/uL (0-0); METAMYELOCYTES% (MANUAL) 2 % (0-1); MONOS#(MANUAL) 0.08 x10^3/uL (0.3-2.7); MONOS% (MANUAL) 12 % (2-9); SEG#(MANUAL) 0.03 x10^3/uL (1.8-6.8); SEGS% (MANUAL) 4 % (42-75)
[2018-03-04 23:25] LABS: OTHER CELLS # (MANUAL) 0.27 x10^3/uL (0-0); OTHER CELLS % (MANUAL) 38 % (0-0)
[2018-03-04 23:26] LABS: ANISOCYTOSIS 1+
[2018-03-04 23:27] LABS: <PLATELET ESTIMATE> DECREASED; <PLT MORPHOLOGY> NORMAL PLT MORPH
[2018-03-04] MEDS: ACETAMINOPHEN 650 MG SUPP PR PRN (23:32)
[2018-03-04] MEDS: ACETAMINOPHEN 325 MG TABLET PO PRN (23:41)
[2018-03-05] VITALS (13 sets, daily range): BP systolic 94–120; BP diastolic 56–85
[2018-03-05] MEDS: METOPROLOL TARTRATE 25 MG TABLET PO SCH ×4 (03:20→20:30)
[2018-03-05] MEDS: CEFEPIME 2 GM in DEXTROSE 5% 100 ML IV SCH ×3 (03:20→20:29)
[2018-03-05] MEDS: MICAFUNGIN 100 MG in SODIUM CHLORIDE 0.9% 100 ML IV SCH (04:23)
[2018-03-05] MEDS: NYSTATIN 500,000 UNITS/5 ML UDC PO SCH ×4 (05:41→20:29)
[2018-03-05 06:20] LABS: MEAN CORPUSCULAR HEMOGLOBIN 32.1 pg (27.5-34.5); MEAN CORPUSCULAR HGB CONC 35.9 g/dL (33.2-36.2); MEAN CORPUSCULAR VOLUME 89.5 fL (81-97); RED BLOOD COUNT 2.49 x10^6/uL (4.38-5.82); RED CELL DISTRIBUTION WIDTH 14.1 % (9.4-14.8)
[2018-03-05 06:29] LABS: ALANINE AMINOTRANSFERASE 21 U/L (12-78); ALBUMIN 2.1 g/dL (3.4-5.0); ANION GAP 9 mmol/L (5-15); CALCIUM 8.4 mg/dL (8.5-10.1); CHLORIDE 110 mmol/L (98-107); CREATININE 1.54 mg/dL (0.7-1.3)
[2018-03-05 06:31] LABS: ALKALINE PHOSPHATASE 70 U/L (45-117); TOTAL PROTEIN 6.8 g/dL (6.4-8.2)
[2018-03-05 06:38] LABS: MD YES
[2018-03-05 06:42] LABS: MEAN PLATELET VOLUME 8.4 fL (7.4-10.4)
[2018-03-05 06:44] LABS: PLATELET COUNT 15 x10^3/uL (130-400)
[2018-03-05 07:35] LABS: METAMYELOCYTES# (MANUAL) 0.04 x10^3/uL (0-0); METAMYELOCYTES% (MANUAL) 3 % (0-1); MYELOCYTES# (MANUAL) 0.04 x10^3/uL (0-0); MYELOCYTES% (MANUAL) 3 % (0-0); SEG#(MANUAL) 0.06 x10^3/uL (1.8-6.8); SEGS% (MANUAL) 4 % (42-75)
[2018-03-05 07:36] LABS: NRBC % (MANUAL) 1 % (0-1); OTHER CELLS # (MANUAL) 0.64 x10^3/uL (0-0); OTHER CELLS % (MANUAL) 46 % (0-0)
[2018-03-05 07:38] LABS: <PLATELET ESTIMATE> DECREASED; <PLT MORPHOLOGY> NORMAL PLT MORPH; ANISOCYTOSIS 1+; LYMPH#(MANUAL) 0.59 x10^3/uL (1-3.4); LYMPHS% (MANUAL) 42 % (22-44); MONOS#(MANUAL) 0.03 x10^3/uL (0.3-2.7); MONOS% (MANUAL) 2 % (2-9)
[2018-03-05] MEDS: SODIUM CHLORIDE 0.9% 1,000 ML IV SCH ×2 (08:04→17:15)
[2018-03-05] MEDS: DIGOXIN 0.25 MG/ML, 2ML IVPush SCH (08:05)
[2018-03-05] MEDS: INSULIN LISPRO 100 UNITS/ML, PEN SQ-INSULIN SCH ×4 (08:06→20:31)
[2018-03-05] MEDS: POLYETHYLENE GLYCOL 17 GM PACKET PO SCH (08:06)
[2018-03-05] MEDS: AMIODARONE 900 MG in DEXTROSE 5% 482 ML IV PRN (08:52)
[2018-03-05] MEDS: PANTOPRAZOLE 40 MG IV IVPush SCH (12:54)
[2018-03-05] MEDS: DAPTOMYCIN 700 MG in SODIUM CHLORIDE 0.9% 100 ML IV SCH (12:54)
[2018-03-05] MEDS: ACETAMINOPHEN 325 MG TABLET PO PRN (15:57)
[2018-03-05] MEDS ORDERED: INSULIN GLARGINE 100 UNITS/ML, PEN SQ-INSULIN SCH (21:00)
[2018-03-06] VITALS (12 sets, daily range): BP systolic 102–127; BP diastolic 51–74
[2018-03-06] MEDS: PANTOPRAZOLE 40 MG IV IVPush SCH ×2 (00:50→12:17)
[2018-03-06] MEDS: CEFEPIME 2 GM in DEXTROSE 5% 100 ML IV SCH ×3 (03:27→21:32)
[2018-03-06] MEDS: SODIUM CHLORIDE 0.9% 1,000 ML IV SCH ×2 (03:27→14:46)
[2018-03-06] MEDS: METOPROLOL TARTRATE 25 MG TABLET PO SCH ×5 (03:27→21:31)
[2018-03-06] MEDS: MICAFUNGIN 100 MG in SODIUM CHLORIDE 0.9% 100 ML IV SCH (04:56)
[2018-03-06 05:36] LABS: MEAN CORPUSCULAR HEMOGLOBIN 31.4 pg (27.5-34.5); MEAN CORPUSCULAR VOLUME 89.8 fL (81-97); MEAN PLATELET VOLUME 8.2 fL (7.4-10.4); RED BLOOD COUNT 1.98 x10^6/uL (4.38-5.82); RED CELL DISTRIBUTION WIDTH 14.6 % (9.4-14.8)
[2018-03-06 05:38] LABS: PLATELET COUNT 12 x10^3/uL (130-400)
[2018-03-06 05:39] LABS: CHLORIDE 111 mmol/L (98-107)
[2018-03-06] MEDS: NYSTATIN 500,000 UNITS/5 ML UDC PO SCH ×4 (06:00→21:31)
[2018-03-06 06:02] LABS: ALANINE AMINOTRANSFERASE 16 U/L (12-78); ALBUMIN 1.7 g/dL (3.4-5.0); ALKALINE PHOSPHATASE 60 U/L (45-117); ANION GAP 11 mmol/L (5-15); BILIRUBIN,TOTAL 0.8 mg/dL (0.2-1.0); CALCIUM 7.1 mg/dL (8.5-10.1); CREATININE 1.52 mg/dL (0.7-1.3); TOTAL PROTEIN 5.8 g/dL (6.4-8.2)
[2018-03-06 06:29] LABS: MD YES
[2018-03-06 06:38] LABS: <PLATELET ESTIMATE> DECREASED; <PLT MORPHOLOGY> NORMAL PLT MORPH; ANISOCYTOSIS 1+; BASOS#(MANUAL) 0.03 x10^3/uL (0-0.1); BASOS% (MANUAL) 2 % (0-1); LYMPH#(MANUAL) 0.34 x10^3/uL (1-3.4); LYMPHS% (MANUAL) 26 % (22-44); METAMYELOCYTES# (MANUAL) 0.08 x10^3/uL (0-0); METAMYELOCYTES% (MANUAL) 6 % (0-1); MYELOCYTES# (MANUAL) 0.05 x10^3/uL (0-0); MYELOCYTES% (MANUAL) 4 % (0-0); OTHER CELLS # (MANUAL) 0.78 x10^3/uL (0-0); OTHER CELLS % (MANUAL) 60 % (0-0); SEG#(MANUAL) 0.03 x10^3/uL (1.8-6.8); SEGS% (MANUAL) 2 % (42-75)
[2018-03-06] MEDS ORDERED: POTASSIUM CHLORIDE 40 MEQ in SODIUM CHLORIDE 0.9% 500 ML IV ONE (07:30)
[2018-03-06] MEDS: INSULIN LISPRO 100 UNITS/ML, PEN SQ-INSULIN SCH ×4 (08:25→21:35)
[2018-03-06] MEDS: DIGOXIN 0.25 MG/ML, 2ML IVPush SCH (08:26)
[2018-03-06] MEDS: MAGNESIUM OXIDE 400 MG TABLET PO SCH ×3 (08:26→21:32)
[2018-03-06] MEDS: POLYETHYLENE GLYCOL 17 GM PACKET PO SCH (09:00)
[2018-03-06 19:18] LABS: MD YES; MEAN CORPUSCULAR HEMOGLOBIN 32.2 pg (27.5-34.5); MEAN CORPUSCULAR HGB CONC 35.3 g/dL (33.2-36.2); MEAN CORPUSCULAR VOLUME 91.2 fL (81-97); MEAN PLATELET VOLUME 8.4 fL (7.4-10.4); RED BLOOD COUNT 2.47 x10^6/uL (4.38-5.82); RED CELL DISTRIBUTION WIDTH 14.3 % (9.4-14.8)
[2018-03-06 19:19] LABS: PLATELET COUNT 5 x10^3/uL (130-400)
[2018-03-06 19:24] LABS: LYMPH#(MANUAL) 0.42 x10^3/uL (1-3.4); LYMPHS% (MANUAL) 32 % (22-44); MONOS#(MANUAL) 0.05 x10^3/uL (0.3-2.7); MONOS% (MANUAL) 4 % (2-9); SEG#(MANUAL) 0.05 x10^3/uL (1.8-6.8); SEGS% (MANUAL) 4 % (42-75)
[2018-03-06 19:26] LABS: NRBC % (MANUAL) 4 % (0-1); OTHER CELLS # (MANUAL) 0.78 x10^3/uL (0-0); OTHER CELLS % (MANUAL) 60 % (0-0)
[2018-03-06 19:27] LABS: <PLATELET ESTIMATE> DECREASED; <PLT MORPHOLOGY> QNS FOR PLT MORPH; ANISOCYTOSIS 1+
[2018-03-06] MEDS: INSULIN GLARGINE 100 UNITS/ML, PEN SQ-INSULIN SCH (21:34)
[2018-03-07] VITALS (15 sets, daily range): BP systolic 120–136; BP diastolic 70–86
[2018-03-07] MEDS: PANTOPRAZOLE 40 MG IV IVPush SCH ×2 (00:56→13:06)
[2018-03-07] MEDS: SODIUM CHLORIDE 0.9% 1,000 ML IV SCH (03:11)
[2018-03-07] MEDS: METOPROLOL TARTRATE 25 MG TABLET PO SCH ×4 (03:11→21:08)
[2018-03-07 03:49] LABS: ALANINE AMINOTRANSFERASE 18 U/L (12-78); ALBUMIN 1.6 g/dL (3.4-5.0); ANION GAP 10 mmol/L (5-15); CALCIUM 6.5 mg/dL (8.5-10.1); CHLORIDE 123 mmol/L (98-107)
[2018-03-07 03:51] LABS: ALKALINE PHOSPHATASE 57 U/L (45-117); BILIRUBIN,TOTAL 0.7 mg/dL (0.2-1.0); TOTAL PROTEIN 5.3 g/dL (6.4-8.2)
[2018-03-07 03:56] LABS: MEAN CORPUSCULAR HEMOGLOBIN 32.9 pg (27.5-34.5); MEAN CORPUSCULAR HGB CONC 35.8 g/dL (33.2-36.2); MEAN CORPUSCULAR VOLUME 91.8 fL (81-97); MEAN PLATELET VOLUME 7.8 fL (7.4-10.4); RED BLOOD COUNT 1.81 x10^6/uL (4.38-5.82); RED CELL DISTRIBUTION WIDTH 14.2 % (9.4-14.8)
[2018-03-07 04:05] LABS: PLATELET COUNT 8 x10^3/uL (130-400)
[2018-03-07 04:18] LABS: MD YES
[2018-03-07 04:36] LABS: LYMPH#(MANUAL) 0.39 x10^3/uL (1-3.4); LYMPHS% (MANUAL) 28 % (22-44); METAMYELOCYTES# (MANUAL) 0.17 x10^3/uL (0-0); METAMYELOCYTES% (MANUAL) 12 % (0-1); MONOS#(MANUAL) 0.06 x10^3/uL (0.3-2.7); MONOS% (MANUAL) 4 % (2-9); MYELOCYTES# (MANUAL) 0.11 x10^3/uL (0-0); MYELOCYTES% (MANUAL) 8 % (0-0); PROGRANULOCYTES# (MANUAL) 0.11 x10^3/uL (0-0); PROGRANULOCYTES% (MANUAL) 8 % (0-0); SEG#(MANUAL) 0.06 x10^3/uL (1.8-6.8); SEGS% (MANUAL) 4 % (42-75)
[2018-03-07 04:38] LABS: OTHER CELLS % (MANUAL) 36 % (0-0)
[2018-03-07 04:39] LABS: <PLATELET ESTIMATE> DECREASED; <PLT MORPHOLOGY> NORMAL PLT MORPH; ANISOCYTOSIS 1+
[2018-03-07] MEDS: NYSTATIN 500,000 UNITS/5 ML UDC PO SCH ×4 (06:00→21:09)
[2018-03-07] MEDS: CEFEPIME 2 GM in DEXTROSE 5% 100 ML IV SCH ×3 (06:00→21:08)
[2018-03-07] MEDS: INSULIN LISPRO 100 UNITS/ML, PEN SQ-INSULIN SCH ×4 (07:00→23:08)
[2018-03-07] MEDS ORDERED: SODIUM CHLORIDE 0.45% 1,000 ML IV SCH ×2 (08:00→17:00)
[2018-03-07] MEDS ORDERED: POTASSIUM CHLORIDE 40 MEQ in SODIUM CHLORIDE 0.9% 500 ML IV ONE (09:00)
[2018-03-07] MEDS ORDERED: OMNIPAQUE 350 MG/ML, 150 ML BOTTLE ONE (09:39)
[2018-03-07] MEDS: MAGNESIUM OXIDE 400 MG TABLET PO SCH ×2 (09:59→21:08)
[2018-03-07] MEDS: POTASSIUM CHLORIDE 20 MEQ TAB.ER.PRT PO SCH ×2 (09:59→15:36)
[2018-03-07] MEDS: DIGOXIN 0.25 MG/ML, 2ML IVPush SCH (10:00)
[2018-03-07] MEDS ORDERED: TPN PER PHARMACY MC PRN (10:00)
[2018-03-07] MEDS: POLYETHYLENE GLYCOL 17 GM PACKET PO SCH (10:00)
[2018-03-07] MEDS ORDERED: POTASSIUM PHOSPHATE 44 MEQ in SODIUM CHLORIDE 0.9% 500 ML IV ONE (16:00)
[2018-03-07] MEDS ORDERED: MAGNESIUM SULFATE PMX 2GM/50ML 50 ML IV ONE (16:00)
[2018-03-07] MEDS ORDERED: [UNRECOGNIZED DRUG - OTHER] IV SCH (17:00)
[2018-03-07] MEDS ORDERED: FILTER, DISP 1.2 MICRON FOR TPN/PVN IV PRN (17:00)
[2018-03-07] MEDS ORDERED: AMINO ACID 10% IV SCH (17:00)
[2018-03-07] MEDS ORDERED: SMOF TPN IV SCH (17:00)
[2018-03-07] MEDS ORDERED: FAT EMUL IV SCH (17:00)
[2018-03-07] MEDS ORDERED: DEXTROSE 50%, 50ML SYRINGE IVPush PRN (17:00)
[2018-03-07] MEDS ORDERED: DEXTROSE 10% 500 ML IV PRN (17:00)
[2018-03-07] MEDS ORDERED: DEXTROSE 70% IV SCH (17:00)
[2018-03-07 19:06] LABS: MD YES; MEAN CORPUSCULAR HEMOGLOBIN 31.7 pg (27.5-34.5); MEAN CORPUSCULAR HGB CONC 35.5 g/dL (33.2-36.2); MEAN CORPUSCULAR VOLUME 89.4 fL (81-97); RED BLOOD COUNT 2.87 x10^6/uL (4.38-5.82); RED CELL DISTRIBUTION WIDTH 14.8 % (9.4-14.8)
[2018-03-07 19:46] LABS: LYMPH#(MANUAL) 0.73 x10^3/uL (1-3.4); LYMPHS% (MANUAL) 27 % (22-44); METAMYELOCYTES# (MANUAL) 0.14 x10^3/uL (0-0); METAMYELOCYTES% (MANUAL) 5 % (0-1); MONOS#(MANUAL) 0.46 x10^3/uL (0.3-2.7); MONOS% (MANUAL) 17 % (2-9); MYELOCYTES# (MANUAL) 0.14 x10^3/uL (0-0); MYELOCYTES% (MANUAL) 5 % (0-0); PROGRANULOCYTES# (MANUAL) 0.24 x10^3/uL (0-0); PROGRANULOCYTES% (MANUAL) 9 % (0-0); SEG#(MANUAL) 0.05 x10^3/uL (1.8-6.8); SEGS% (MANUAL) 2 % (42-75)
[2018-03-07 19:52] LABS: NRBC % (MANUAL) 1 % (0-1); OTHER CELLS # (MANUAL) 0.95 x10^3/uL (0-0); OTHER CELLS % (MANUAL) 35 % (0-0)
[2018-03-07 19:54] LABS: MEAN PLATELET VOLUME 7.5 fL (7.4-10.4); PLATELET COUNT 14 x10^3/uL (130-400)
[2018-03-07 19:55] LABS: <PLATELET ESTIMATE> DECREASED; <PLT MORPHOLOGY> NORMAL PLT MORPH; ANISOCYTOSIS 1+
[2018-03-07] MEDS: INSULIN GLARGINE 100 UNITS/ML, PEN SQ-INSULIN SCH (23:08)
[2018-03-08] VITALS (8 sets, daily range): BP systolic 90–118; BP diastolic 56–72
[2018-03-08] MEDS: PANTOPRAZOLE 40 MG IV IVPush SCH ×2 (00:44→12:36)
[2018-03-08] MEDS: METOPROLOL TARTRATE 25 MG TABLET PO SCH ×4 (03:00→20:11)
[2018-03-08] MEDS: CEFEPIME 2 GM in DEXTROSE 5% 100 ML IV SCH ×3 (04:54→20:24)
[2018-03-08] MEDS: INSULIN LISPRO 100 UNITS/ML, PEN SQ-INSULIN SCH ×4 (05:00→23:22)
[2018-03-08] MEDS: NYSTATIN 500,000 UNITS/5 ML UDC PO SCH ×4 (05:29→20:24)
[2018-03-08 06:02] LABS: MEAN CORPUSCULAR HEMOGLOBIN 31.6 pg (27.5-34.5); MEAN CORPUSCULAR HGB CONC 35.1 g/dL (33.2-36.2); MEAN CORPUSCULAR VOLUME 90.2 fL (81-97); RED BLOOD COUNT 2.64 x10^6/uL (4.38-5.82); RED CELL DISTRIBUTION WIDTH 14.8 % (9.4-14.8)
[2018-03-08 06:42] LABS: MEAN PLATELET VOLUME 7.7 fL (7.4-10.4)
[2018-03-08 06:43] LABS: PLATELET COUNT 8 x10^3/uL (130-400)
[2018-03-08 06:46] LABS: MD YES
[2018-03-08 06:59] LABS: ALANINE AMINOTRANSFERASE 23 U/L (12-78); ALBUMIN 1.8 g/dL (3.4-5.0); ANION GAP 11 mmol/L (5-15); CALCIUM 7.7 mg/dL (8.5-10.1); CHLORIDE 123 mmol/L (98-107); CREATININE 2.26 mg/dL (0.7-1.3)
[2018-03-08 07:00] LABS: LYMPH#(MANUAL) 0.57 x10^3/uL (1-3.4); LYMPHS% (MANUAL) 27 % (22-44); METAMYELOCYTES# (MANUAL) 0.04 x10^3/uL (0-0); METAMYELOCYTES% (MANUAL) 2 % (0-1); MONOS#(MANUAL) 0.13 x10^3/uL (0.3-2.7); MONOS% (MANUAL) 6 % (2-9); MYELOCYTES# (MANUAL) 0.11 x10^3/uL (0-0); MYELOCYTES% (MANUAL) 5 % (0-0); PROGRANULOCYTES# (MANUAL) 0.15 x10^3/uL (0-0); PROGRANULOCYTES% (MANUAL) 7 % (0-0); SEG#(MANUAL) 0.11 x10^3/uL (1.8-6.8); SEGS% (MANUAL) 5 % (42-75)
[2018-03-08 07:01] LABS: OTHER CELLS # (MANUAL) 1.01 x10^3/uL (0-0); OTHER CELLS % (MANUAL) 48 % (0-0)
[2018-03-08 07:02] LABS: ANISOCYTOSIS 1+
[2018-03-08 07:03] LABS: <PLATELET ESTIMATE> DECREASED; <PLT MORPHOLOGY> NORMAL PLT MORPH
[2018-03-08 07:05] LABS: ALKALINE PHOSPHATASE 69 U/L (45-117); BILIRUBIN,TOTAL 0.9 mg/dL (0.2-1.0); PREALBUMIN 4.1 mg/dL (20.0-40.0); TOTAL PROTEIN 6.3 g/dL (6.4-8.2); TRIGLYCERIDES 140 mg/dL (50-200)
[2018-03-08] MEDS: POLYETHYLENE GLYCOL 17 GM PACKET PO SCH (09:00)
[2018-03-08] MEDS ORDERED: AMIODARONE 900 MG in DEXTROSE 5% 482 ML IV PRN (10:00)
[2018-03-08] MEDS ORDERED: FILTER 0.22 MICRON IV PRN (10:00)
[2018-03-08] MEDS: DIGOXIN 0.25 MG/ML, 2ML IVPush SCH (10:26)
[2018-03-08] MEDS ORDERED: FILTER, DISP 1.2 MICRON FOR TPN/PVN IV PRN (17:00)
[2018-03-08] MEDS ORDERED: AMINO ACID 10% IV SCH (17:00)
[2018-03-08] MEDS ORDERED: SMOF TPN IV SCH (17:00)
[2018-03-08] MEDS ORDERED: FAT EMUL IV SCH (17:00)
[2018-03-08] MEDS ORDERED: [UNRECOGNIZED DRUG - OTHER] IV SCH (17:00)
[2018-03-08] MEDS ORDERED: DEXTROSE 70% IV SCH (17:00)
[2018-03-08] MEDS ORDERED: INSULIN GLARGINE 100 UNITS/ML, PEN SQ-INSULIN SCH (21:00)
[2018-03-09] VITALS (12 sets, daily range): BP systolic 81–103; BP diastolic 41–65
[2018-03-09] MEDS: PANTOPRAZOLE 40 MG IV IVPush SCH ×3 (00:59→23:44)
[2018-03-09] MEDS: ACETAMINOPHEN 650 MG SUPP PR PRN ×2 (01:54→23:53)
[2018-03-09] MEDS ORDERED: SODIUM CHLORIDE 0.9% 1,000ML IVBOLUS ONE (02:30)
[2018-03-09] MEDS ORDERED: SODIUM CHLORIDE 0.9% 1,000 ML IV SCH (02:30)
[2018-03-09] MEDS: METOPROLOL TARTRATE 25 MG TABLET PO SCH ×4 (03:00→20:23)
[2018-03-09] MEDS: CEFEPIME 2 GM in DEXTROSE 5% 100 ML IV SCH (05:03)
[2018-03-09] MEDS: NYSTATIN 500,000 UNITS/5 ML UDC PO SCH ×4 (05:21→20:23)
[2018-03-09] MEDS: INSULIN LISPRO 100 UNITS/ML, PEN SQ-INSULIN SCH (05:21)
[2018-03-09 05:52] LABS: MEAN CORPUSCULAR HEMOGLOBIN 31.5 pg (27.5-34.5); MEAN CORPUSCULAR HGB CONC 35.2 g/dL (33.2-36.2); MEAN CORPUSCULAR VOLUME 89.6 fL (81-97); MEAN PLATELET VOLUME 8.6 fL (7.4-10.4); RED BLOOD COUNT 2.38 x10^6/uL (4.38-5.82); RED CELL DISTRIBUTION WIDTH 14.9 % (9.4-14.8)
[2018-03-09 05:53] LABS: PLATELET COUNT 7 x10^3/uL (130-400)
[2018-03-09 06:02] LABS: ALBUMIN 1.6 g/dL (3.4-5.0); ANION GAP 12 mmol/L (5-15); CHLORIDE 118 mmol/L (98-107)
[2018-03-09 06:03] LABS: MD YES
[2018-03-09 06:06] LABS: ALANINE AMINOTRANSFERASE 20 U/L (12-78); ALKALINE PHOSPHATASE 59 U/L (45-117); BILIRUBIN,TOTAL 0.8 mg/dL (0.2-1.0); CREATININE 2.74 mg/dL (0.7-1.3)
[2018-03-09 06:15] LABS: LYMPH#(MANUAL) 0.52 x10^3/uL (1-3.4); LYMPHS% (MANUAL) 26 % (22-44); METAMYELOCYTES# (MANUAL) 0.04 x10^3/uL (0-0); METAMYELOCYTES% (MANUAL) 2 % (0-1); MONOS#(MANUAL) 0.12 x10^3/uL (0.3-2.7); MONOS% (MANUAL) 6 % (2-9); MYELOCYTES# (MANUAL) 0.14 x10^3/uL (0-0); MYELOCYTES% (MANUAL) 7 % (0-0); OTHER CELLS # (MANUAL) 0.92 x10^3/uL (0-0); OTHER CELLS % (MANUAL) 46 % (0-0); PROGRANULOCYTES# (MANUAL) 0.18 x10^3/uL (0-0); PROGRANULOCYTES% (MANUAL) 9 % (0-0); SEG#(MANUAL) 0.08 x10^3/uL (1.8-6.8); SEGS% (MANUAL) 4 % (42-75)
[2018-03-09 06:16] LABS: ANISOCYTOSIS 1+
[2018-03-09 06:17] LABS: <PLATELET ESTIMATE> DECREASED; <PLT MORPHOLOGY> NORMAL PLT MORPH
[2018-03-09] MEDS: POLYETHYLENE GLYCOL 17 GM PACKET PO SCH (07:38)
[2018-03-09] MEDS ORDERED: SODIUM CHLORIDE 0.45% 1,000 ML IV SCH ×2 (09:00→12:00)
[2018-03-09] MEDS: DIGOXIN 0.25 MG/ML, 2ML IVPush SCH ×2 (09:31→11:05)
[2018-03-09] MEDS: MORPHINE SULFATE 4 MG/ML, 1ML IVPush PRN (11:39)
[2018-03-09] MEDS: CEFTAROLINE 300 MG in SODIUM CHLORIDE 0.9% 100 ML IV SCH ×2 (12:02→23:31)
[2018-03-09] MEDS: INSULIN REGULAR HIGH DOSE Q6H X 48HRS SQ-INSULIN SCH ×2 (15:51→21:00)
[2018-03-09] MEDS ORDERED: [UNRECOGNIZED DRUG - OTHER] IV SCH (17:00)
[2018-03-09] MEDS ORDERED: FILTER, DISP 1.2 MICRON FOR TPN/PVN IV PRN (17:00)
[2018-03-09] MEDS ORDERED: AMINO ACID 10% IV SCH (17:00)
[2018-03-09] MEDS ORDERED: DEXTROSE 70% IV SCH (17:00)
[2018-03-09] MEDS ORDERED: SMOF TPN IV SCH (17:00)
[2018-03-09] MEDS ORDERED: FAT EMUL IV SCH (17:00)
[2018-03-09] MEDS ORDERED: INSULIN GLARGINE 100 UNITS/ML, PEN SQ-INSULIN SCH (21:00)
[2018-03-10] VITALS (9 sets, daily range): BP systolic 89–101; BP diastolic 54–62
[2018-03-10] MEDS: METOPROLOL TARTRATE 25 MG TABLET PO SCH ×3 (03:00→15:00)
[2018-03-10] MEDS: INSULIN REGULAR HIGH DOSE Q6H X 48HRS SQ-INSULIN SCH ×3 (03:00→15:00)
[2018-03-10 03:09] LABS: MICROSCOPIC INDICATED
[2018-03-10 03:20] LABS: CULTURE INDICATED? NO
[2018-03-10] MEDS: NYSTATIN 500,000 UNITS/5 ML UDC PO SCH ×3 (03:41→15:33)
[2018-03-10 05:12] LABS: MEAN CORPUSCULAR HEMOGLOBIN 31.2 pg (27.5-34.5); MEAN CORPUSCULAR HGB CONC 34.6 g/dL (33.2-36.2); MEAN PLATELET VOLUME 7.4 fL (7.4-10.4); RED BLOOD COUNT 2.47 x10^6/uL (4.38-5.82); RED CELL DISTRIBUTION WIDTH 15.1 % (9.4-14.8)
[2018-03-10 05:21] LABS: ALBUMIN 1.6 g/dL (3.4-5.0); ANION GAP 11 mmol/L (5-15); CALCIUM 8.2 mg/dL (8.5-10.1); CHLORIDE 117 mmol/L (98-107)
[2018-03-10 05:25] LABS: ALANINE AMINOTRANSFERASE 20 U/L (12-78); ALKALINE PHOSPHATASE 64 U/L (45-117); BILIRUBIN,TOTAL 0.9 mg/dL (0.2-1.0); CREATININE 3.98 mg/dL (0.7-1.3); TOTAL PROTEIN 6.3 g/dL (6.4-8.2)
[2018-03-10 05:39] LABS: PLATELET COUNT 7 x10^3/uL (130-400)
[2018-03-10 05:45] LABS: MD YES
[2018-03-10 05:58] LABS: BAND#(MANUAL) 0.04 x10^3/uL; BANDS%(MANUAL) 1 % (0-7); LYMPH#(MANUAL) 1.06 x10^3/uL (1-3.4); LYMPHS% (MANUAL) 24 % (22-44); METAMYELOCYTES# (MANUAL) 0.13 x10^3/uL (0-0); METAMYELOCYTES% (MANUAL) 3 % (0-1); MONOS#(MANUAL) 0.35 x10^3/uL (0.3-2.7); MONOS% (MANUAL) 8 % (2-9); MYELOCYTES# (MANUAL) 0.53 x10^3/uL (0-0); MYELOCYTES% (MANUAL) 12 % (0-0); SEG#(MANUAL) 0.13 x10^3/uL (1.8-6.8); SEGS% (MANUAL) 3 % (42-75)
[2018-03-10 05:59] LABS: <PLATELET ESTIMATE> DECREASED; <PLT MORPHOLOGY> QNS FOR PLT MORPH; ANISOCYTOSIS 1+; OTHER CELLS # (MANUAL) 2.16 x10^3/uL (0-0); OTHER CELLS % (MANUAL) 49 % (0-0)
[2018-03-10] MEDS: POLYETHYLENE GLYCOL 17 GM PACKET PO SCH (07:44)
[2018-03-10] MEDS: DIGOXIN 0.25 MG/ML, 2ML IVPush SCH (08:37)
[2018-03-10 09:12] LABS: CHLORIDE,URINE RANDOM 124 mmol/L; POTASSIUM,URINE RANDOM 16 mmol/L; SODIUM,URINE RANDOM 117 mmol/L
[2018-03-10] MEDS ORDERED: SODIUM BICARBONATE 8.4% 150 MEQ in DEXTROSE 5% 1,000 ML IV SCH (11:30)
[2018-03-10] MEDS: CEFTAROLINE 300 MG in SODIUM CHLORIDE 0.9% 100 ML IV SCH (12:00)
[2018-03-10] MEDS: PANTOPRAZOLE 40 MG IV IVPush SCH (12:00)
[2018-03-10] MEDS ORDERED: DEXTROSE 5% IV SCH (13:00)
[2018-03-10] MEDS ORDERED: [UNRECOGNIZED DRUG - OTHER] IV SCH (13:00)
[2018-03-10] MEDS ORDERED: POSACONAZOLE 200 MG/5 ML ORAL SUSP PO ONE (13:30)
[2018-03-10 14:58] LABS: ANION GAP 13 mmol/L (5-15); CALCIUM 8.2 mg/dL (8.5-10.1); CHLORIDE 115 mmol/L (98-107); CREATININE 4.45 mg/dL (0.7-1.3)
[2018-03-10] MEDS ORDERED: [UNRECOGNIZED DRUG - OTHER] IV SCH (17:00)
[2018-03-10] MEDS ORDERED: SMOF TPN IV SCH (17:00)
[2018-03-10] MEDS ORDERED: AMINO ACID 10% IV SCH (17:00)
[2018-03-10] MEDS ORDERED: DEXTROSE 70% IV SCH (17:00)
[2018-03-10] MEDS ORDERED: FAT EMUL IV SCH (17:00)
[2018-03-10] MEDS ORDERED: LORazepam INTENSOL 2 MG/ML SL PRN (18:30)
[2018-03-10] MEDS ORDERED: LORazepam 2 MG/ML, 1ML IVPush PRN (18:30)
[2018-03-10] MEDS ORDERED: MORPHINE SULFATE 4 MG/ML, 1ML IVPush PRN (18:30)
[2018-03-10] MEDS ORDERED: ATROPINE OPHTH SOLN 1%, 2ML BC PRN (18:30)
[2018-03-10] MEDS ORDERED: PROCHLORPERAZINE 5 MG/ML, 2ML IVPush PRN (18:30)
[2018-03-10] MEDS ORDERED: HYDROmorphone 2 MG/ML, 1ML IVPush PRN (18:30)
[2018-03-10] MEDS: MORPHINE SULFATE 4 MG/ML, 1ML IVPush PRN ×2 (19:27→22:57)
[2018-03-10] MEDS ORDERED: ATORVASTATIN 80 MG TABLET PO SCH (21:00)
[2018-03-10] MEDS ORDERED: INSULIN GLARGINE 100 UNITS/ML, PEN SQ-INSULIN SCH (21:00)
[2018-03-11] MEDS: MORPHINE SULFATE 4 MG/ML, 1ML IVPush PRN (05:35)
[2018-03-11] MEDS ORDERED: POSACONAZOLE 200 MG/5 ML ORAL SUSP PO SCH (09:00)
== END 2018-03-11 09:55 | disposition expired | DRG 871 ==
LOC: ED 11:03 → EDIP 11:49 → 4EST 13:49 → 3NW 02-08 17:15 → CCU 02-11 20:02 → 5SO 02-12 11:37 → 3NW 02-15 16:06 → 4WST 02-17 01:00 → 3NW 03-02 15:00 → 4WST 03-03 18:24 → 4EST 03-10 03:25 → 4WST 03-10 03:28 → 3NW 03-10 20:10
PROVIDERS: ADMIT Hospitalist; ATTEND Family Medicine
PROC: 07DR3ZX Extraction of Iliac Bone Marrow, Percutaneous Approach, Diagnostic (ICD-10-PCS; principal; 2018-02-04)
PROC: 30233R1 Transfusion of Nonautologous Platelets into Peripheral Vein, Percutaneous Approach (ICD-10-PCS; 2018-02-04)
PROC: 30233N1 Transfusion of Nonautologous Red Blood Cells into Peripheral Vein, Percutaneous Approach (ICD-10-PCS; 2018-02-08)
PROC: 02HV33Z Insertion of Infusion Device into Superior Vena Cava, Percutaneous Approach (ICD-10-PCS; 2018-02-09)
PROC: B5181ZA Fluoroscopy of Superior Vena Cava using Low Osmolar Contrast, Guidance (ICD-10-PCS; 2018-02-09)
PROC: B548ZZA Ultrasonography of Superior Vena Cava, Guidance (ICD-10-PCS; 2018-02-09)
PROC: 02HV33Z Insertion of Infusion Device into Superior Vena Cava, Percutaneous Approach (ICD-10-PCS; 2018-02-10)
PROC: B5181ZA Fluoroscopy of Superior Vena Cava using Low Osmolar Contrast, Guidance (ICD-10-PCS; 2018-02-10)
PROC: B548ZZA Ultrasonography of Superior Vena Cava, Guidance (ICD-10-PCS; 2018-02-10)
PROC: 0T9B70Z Drainage of Bladder with Drainage Device, Via Natural or Artificial Opening (ICD-10-PCS; 2018-02-26)
PROC: 02PYX3Z Removal of Infusion Device from Great Vessel, External Approach (ICD-10-PCS; 2018-03-04)
PROC: 02HV33Z Insertion of Infusion Device into Superior Vena Cava, Percutaneous Approach (ICD-10-PCS; 2018-03-04)
DX: A41.52 Sepsis due to Pseudomonas (principal); J96.01 Acute respiratory failure with hypoxia; J18.1 Lobar pneumonia, unspecified organism; G93.41 Metabolic encephalopathy; N17.0 Acute kidney failure with tubular necrosis; I63.9 Cerebral infarction, unspecified; C92.00 Acute myeloblastic leukemia, not having achieved remission; D61.818 Other pancytopenia; Z68.42 Body mass index [BMI] 45.0-49.9, adult; D68.69 Other thrombophilia; E87.0 Hyperosmolality and hypernatremia; E87.1 Hypo-osmolality and hyponatremia; E87.2 Acidosis; F05 Delirium due to known physiological condition; I13.0 Hypertensive heart and chronic kidney disease with heart failure and stage 1 through stage 4 chronic kidney disease, or unspecified chronic kidney disease; I47.2 Ventricular tachycardia; I42.9 Cardiomyopathy, unspecified; I48.92 Unspecified atrial flutter; I50.22 Chronic systolic (congestive) heart failure; J98.11 Atelectasis; T82.818A Embolism due to vascular prosthetic devices, implants and grafts, initial encounter; Z79.4 Long term (current) use of insulin; E66.01 Morbid (severe) obesity due to excess calories; E11.22 Type 2 diabetes mellitus with diabetic chronic kidney disease; E11.65 Type 2 diabetes mellitus with hyperglycemia; E83.39 Other disorders of phosphorus metabolism; E83.42 Hypomagnesemia; E87.5 Hyperkalemia; E87.6 Hypokalemia; E88.09 Other disorders of plasma-protein metabolism, not elsewhere classified; F43.21 Adjustment disorder with depressed mood; H70.91 Unspecified mastoiditis, right ear; I48.0 Paroxysmal atrial fibrillation; K12.30 Oral mucositis (ulcerative), unspecified; K59.00 Constipation, unspecified; N18.9 Chronic kidney disease, unspecified; R04.0 Epistaxis; R50.81 Fever presenting with conditions classified elsewhere; R76.8 Other specified abnormal immunological findings in serum; D63.0 Anemia in neoplastic disease; T45.1X5A Adverse effect of antineoplastic and immunosuppressive drugs, initial encounter; Y84.8 Other medical procedures as the cause of abnormal reaction of the patient, or of later complication, without mention of misadventure at the time of the procedure; Z51.5 Encounter for palliative care; Z66 Do not resuscitate; Z80.8 Family history of malignant neoplasm of other organs or systems; Z82.3 Family history of stroke; Z83.3 Family history of diabetes mellitus
CPT/HCPCS: 36415; 36569; 36580; 36584; 36600; 38222; 70450; 70486; 70553; 71045; 71046; 71260; 74177; 76770; 76937; 77001; 77012; 80048; 80053; 80074; 80076; 80162; 80202; 81001; 81003; 82040; 82140; 82436; 82550; 82553; 82570; 82607; 82746; 82803; 82962; 83036; 83605; 83615; 83735; 83930; 83935; 83970; 84100; 84133; 84134; 84145; 84300; 84439; 84443; 84478; 84484; 84550; 85025; 85049; 85060; 85097; 85384; 85610; 85651; 85730; 86038; 86039; 86140; 86225; 86850; 86900; 86923; 87040; 87076; 87077; 87081; 87086; 87186; 87305; 87449; 87806; 88184; 88185; 88237; 88264; 88280; 88305; 88311; 88313; 88341; 88342; 88360; 88374; 88377; 93005; 93306; 96365; 99156; 99157; 99285; G0378; J0610; J0696; J0712; J0878; J1100; J1815; J1940; J2248; J2250; J2405; J2543; J3010; J3370; J3480; J3490; J7070; J9025; Q0162; Q9967; C1751; C9113; G0461; G0475; J0282; J1160; J1200; J2060; J2310; J3475; J7030; J7040; J7050; J7060; P9037; P9040; P9052; S0028